=== PATIENT | female | born 1970 | race Caucasian/White ===

== ENCOUNTER 2023-07-05 06:09 | Emergency (ER) | payer OTHER, SELFPAY ==
--- NOTE | 2023-07-05 06:17 | ECG_ITS ---
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 Measurements Intervals [place] Rate: 49 P: 56 MA: 187 QRS: -76 QRSD: 137 T: 6 QT: 475 QTc: 433 Interpretive Statements SINUS BRADYCARDIA RIGHT BUNDLE BRANCH BLOCK [120+ ms QRS DURATION, UPRIGHT V1, 40+ ms S IN I/aVL/V4/V5/V6] INFERIOR MYOCARDIAL INFARCTION , PROBABLY OLD [40+ ms Q WAVE AND/OR ST/T ABNORMALITY IN II/aVF] No previous ECG available for comparison Electronically Signed On 07-05-2023 14:20:53 CDT by Sho Blackmon M.D. [id number]
--- NOTE | 2023-07-05 06:17 | XRR_ITS ---
PROCEDURE INFORMATION: Exam: XR Chest Exam date and time: 07/05/2023 6:53 AM Age: 53 years old Clinical indication: Cough and dyspnea; Additional info: Dyspnea/cough TECHNIQUE: Imaging protocol: Radiologic exam of the chest. Views: 1 view. COMPARISON: No relevant prior studies available. FINDINGS: Lungs: No focal airspace disease. Pleural spaces: Unremarkable. No pleural effusion. No pneumothorax. Heart/Mediastinum: Cardiomediastinal silhouette is within normal limits. Bones/joints: Unremarkable. XR/XR chest 1V portable [id number] IMPRESSION: No acute cardiopulmonary abnormality.
[2023-07-05 06:18] VITALS: BP 156/97; PULSE 47; RESP 22; TEMP 37.1; O2SAT 99; BMI 31.6
--- NOTE | 2023-07-05 06:19 | W.ED.ARRPALP ---
HPI - Arrhythmia/Palpitations General: Chief Complaint: Arrhythmia/Palpitations Stated Complaint: heart fluttering Time Seen by Provider: 07/05/23 06:12 Source: patient Mode of arrival: ambulatory History of Present Illness: 53-year-old female presents emergency room with complaint of palpitations and what she describes as fluttering of her heart. No chest pain no shortness of breath. She has had this in the past. On arrival here she is bradycardic. Previous work-up showed bradycardia we do not have any old EKGs. MD complaint: skipped beats and palpitations Onset (ago): minute(s) Duration: intermittent Severity: moderate Context: occurred during rest Associated symptoms: Deny anxiety, cough, diaphoresis, muscle cramps, nausea, paresthesias, pre-syncope, sense of impending doom, short of breath, syncope or vomiting Review of Systems Const: Denies: fever(s), chills or diaphoresis ENMT: Denies: throat pain, ear or mastoid pain, nasal discharge or nasal congestion Card: Reports: palpitations; Denies: chest pain, irregular heart rhythm, edema, swelling of feet/ankles, syncope or pre-syncope Resp: Denies: dyspnea, productive cough or non-productive cough GI: Denies: abdominal pain, nausea or vomiting : Denies: flank pain, difficulty voiding, dysuria, urinary frequency or urinary urgency Musc: Denies: muscle cramps Skin/Breast: Denies: rash or pruritus Psych: Denies: anxiety Physical Exam Const: GENERAL APPEARANCE: cooperative and comfortable ORIENTATION/CONSCIOUSNESS: Yes awake, Yes oriented to person, Yes oriented to place and Yes oriented to time HENMT: COMMON NORMALS: normocephalic, atraumatic and hearing grossly normal bilaterally HEAD & SCALP: normocephalic and atraumatic Resp: COMMON NORMALS: normal respiratory effort, No retractions, No use of accessory muscles and clear to auscultation bilaterally AUSCULTATION: clear to auscultation bilaterally Cardio: COMMON NORMALS: regular rhythm and No murmurs present (Cardio) RATE: bradycardic RHYTHM: regular rhythm GI: COMMON NORMALS: Soft to palpation and No hepatosplenomegaly present AUSCULTATION: Yes normoactive bowel sounds PALPATION: Yes Soft to palpation, No Tenderness to palpation present (GI), No Guarding due to palpation present (GI) and Yes No hepatosplenomegaly present Extremity: COMMON NORMALS: normal to inspection, capillary refill normal, no clubbing, cyanosis or edema, no calf tenderness and no pedal edema Neuro: SENSORIUM/ORIENTATION: Yes oriented to person, Yes oriented to place and Yes oriented to time Skin: COMMON NORMALS: no rashes or lesions noted GENERAL SKIN EXAM: no rashes or lesions noted Course Vital Signs: Vital signs: Vital Signs Temperature 98.7 F 07/05/23 06:18 Pulse Rate 51 L 07/05/23 09:24 Respiratory Rate 16 07/05/23 08:30 Blood Pressure 132/81 07/05/23 09:24 Pulse Oximetry 98 07/05/23 08:30 Oxygen Delivery Me thod Room Air 07/05/23 08:30 MDM - Arrhythmia/Palpitations Medical Decision Making Patient had no further palpitations no arrhythmias close here she was moderately bradycardic she has had this evaluated in the past and was no finding of significant arrhythmia. Blood pressure is slightly elevated while she is here. Her TSH is elevated well we will start her on a low-dose of levothyroxine and have her follow-up with her primary care doctor orthostatics are normal. We went to ambulate the patient she said she is lightheaded and dizzy CT was ordered which was unremarkable subsequently patient was ambulated again this time she did much better. Discharge patient home and follow-up with her primary care doctor. Medical Records I reviewed the patient's medical records. Lab Data I reviewed the patient's lab results. 07/05/23 06:26 07/05/23 06:26 Radiology Impressions Chest X-Ray 07/05/23 06:17 IMPRESSION: No acute cardiopulmonary abnormality. Head CT 07/05/23 09:29 IMPRESSION: No acute intracranial abnormality. Please note that MRI is more sensitive for early changes of acute ischemia. Laboratory Results WBC 8.7 10^3/uL (4.0-10.0) 07/05/23 06:26 RBC 4.76 10^6/uL (4.1-5.3) 07/05/23 06:26 Hgb 14.5 g/dL (11.5-15.3) 07/05/23 06:26 Hct 45.1 % (37.0-47.0) 07/05/23 06:26 MCV 94.7 fl (81-99) 07/05/23 06:26 MCH 30.5 pg (28.0-34.0) 07/05/23 06:26 MCHC 32.2 g/dL (30.0-36.0) 07/05/23 06:26 RDW 13.4 % (12.1-15.1) 07/05/23 06:26 Plt Count 253 10^3/cmm (130-400) 07/05/23 06:26 MPV 9.2 fL (7.4-10.4) 07/05/23 06:26 Neut % (Auto) 52.3 % 07/05/23 06: Lymph % (Auto) 33.9 % 07/05/23 06:26 Curry % (Auto) 8.5 % 07/05/23 06:26 Eos % (Auto) 4.2 % 07/05/23 06:26 Baso % (Auto) 0.8 % 07/05/23 06:26 Neut # (Auto) 4.55 10^3/uL (1.8-7.7) 07/05/23 06:26 Lymph # (Auto) 3.0 10^3/uL (0.8-4.8) 07/05/23 06:26 Curry # (Auto) 0.7 10^3/uL (0.2-0.9) 07/05/23 06:26 Eos # (Auto) 0.4 10^3/uL (0.0-0.8) 07/05/23 06: Baso # (Auto) 0.1 10^3/uL (0.0-0.1) 07/05/23 06:26 Nucleated RBC % (auto) 0 % 07/05/23 06: Nucleated RBCs # 0.0 /100WBC 07/05/23 06:26 Sodium 141 mmol/L (136-145) 07/05/23 06:26 Potassium 3.8 mmol/L (3.5-5.1) 07/05/23 06:26 Chloride 103 mmol/L (98-107) 07/05/23 06:26 Carbon Dioxide 30 mmol/L (22-29) H 07/05/23 06:26 Anion Gap 11.8 (5-19) 07/05/23 06:26 BUN 14 mg/dL (6-20) 07/05/23 06:26 Creatinine 0.7 mg/dL (0.5-0.9) 07/05/23 06:26 GFR Calculation 86.9 mL/min (90-130) L 07/05/23 06:26 Glucose 102 mg/dL (65-115) 07/05/23 06:26 Calculated Osmolality 293 mOsm/kg (285-295) 07/05/23 06:26 Calcium 9.3 mg/dL (8.5-10.5) 07/05/23 06:26 Total Bilirubin 0.2 mg/dL (0.15-1.2) 07/05/23 06:26 AST 12 U/L (0-32) 07/05/23 06:26 ALT 15 U/L (0-33) 07/05/23 06:26 Alkaline Phosphatase 95 U/L (35-105) 07/05/23 06:26 Total Protein 6.8 g/dL (6.6-8.7) 07/05/23 06:26 Albumin 4.1 g/dL (3.5-5.2) 07/05/23 06:26 Globulin 2.7 g/dL (1.3-4.6) 07/05/23 06:26 TSH 5.09 uIU/mL (0.27-4.20) H 07/05/23 06:26 Discharge Plan Discharge Patient Disposition: Home Clinical Impression: Hypothyroid, Bradycardia, Near syncope Condition: Stable Prescriptions: New levothyroxine 25 mcg capsule 25 mcg PO DAILY Qty: 30 0RF No Action Prozac 40 mg Capsule 40 mg PO QAM Nexium 40 mg Capsule,Delayed Release(Dr/Ec) 40 mg PO QAM ibuprofen 200 mg Tablet 600 - 800 mg PO Q6H PRN (Reason: Pain) Estrace 2 mg Tablet 2 mg PO QAM Lasix 20 mg Tablet 20 mg PO DAILY PRN (Reason: Edema) albuterol sulfate 90 mcg/actuation Hfa Aerosol Inhaler 2 puff INHALATION QID PRN (Reason: Shortness Of Breath) Claritin 10 mg Tablet 10 mg PO QAM Discharge Orders: Discharge ED (Routine); Ordered 07/05/23 Ordered By: John Lemus Referrals: Patience Luna, BANQUET WAITER/WAITRESS-C [Nurse Practitioner] - 08/05/23 9:00 am Discharge Diet: Usual diet Discharge Activity: Resume usual activity Patient Instructions: Opioid Safety, Pain Management Activity Restrictions/Additional Instructions: You were seen today for low heart rate. Case management make arrangements for you to have an echocardiogram and a 48-hour Holter monitor. Stand Alone Forms: Work/School Release Coding Level of Care Code ED Air Hole Driller for Rolly Costello
[2023-07-05 06:35] LABS: Basophils # 0.1 10^3/uL (0.0-0.1); Basophils % 0.8 %; Eosinophils # 0.4 10^3/uL (0.0-0.8); Eosinophils % 4.2 %; Hematocrit 45.1 % (37.0-47.0); Hemoglobin 14.5 g/dL (11.5-15.3); Lymphocytes % 33.9 %; Mean Corpuscular HGB Conc 32.2 g/dL (30.0-36.0); Mean Corpuscular Hemoglobin 30.5 pg (28.0-34.0); Mean Corpuscular Volume 94.7 fl (81-99); Mean Platelet Volume 9.2 fL (7.4-10.4); Monocytes # 0.7 10^3/uL (0.2-0.9); Monocytes % 8.5 %; Neutrophils # 4.55 10^3/uL (1.8-7.7); Neutrophils % 52.3 %; Nucleated Red Blood Cells % 0 %; Platelet Count 253 10^3/cmm (130-400); Red Blood Count 4.76 10^6/uL (4.1-5.3); Red Cell Distribution Width 13.4 % (12.1-15.1); White Blood Count 8.7 10^3/uL (4.0-10.0)
[2023-07-05 06:55] VITALS: BP 156/97; PULSE 51; RESP 16; O2SAT 98
[2023-07-05 07:00] LABS: Alanine Aminotransferase 15 U/L (0-33); Albumin Level 4.1 g/dL (3.5-5.2); Alkaline Phosphatase 95 U/L (35-105); Anion Gap 11.8 (5-19); Aspartate Amino Transferase 12 U/L (0-32); Blood Urea Nitrogen 14 mg/dL (6-20); Calcium 9.3 mg/dL (8.5-10.5); Carbon Dioxide 30 mmol/L (22-29); Chloride 103 mmol/L (98-107); Globulin 2.7 g/dL (1.3-4.6); Glomerular Filtration Rate 86.9 mL/min (90-130); Glucose 102 mg/dL (65-115); Osmolality Calculated 293 mOsm/kg (285-295); Potassium 3.8 mmol/L (3.5-5.1); Sodium 141 mmol/L (136-145); Thyroid Stimulating Hormone 5.09 uIU/mL (0.27-4.20); Total Bilirubin 0.2 mg/dL (0.15-1.2); Total Protein 6.8 g/dL (6.6-8.7)
[2023-07-05 07:39] VITALS: BP 136/87; PULSE 63; RESP 16; O2SAT 97
--- NOTE | 2023-07-05 07:43 | PC.PHAR ---
pt states she takes care of her own medications-ext doesnt show any meds pt states she filled them in a different state-
[2023-07-05] MEDS: acetaminophen 500 mg Tablet 1000 MG PO (08:25)
[2023-07-05 08:30] VITALS: BP 156/91; PULSE 52; RESP 16; O2SAT 98
[2023-07-05 09:24] VITALS: BP 132/81; BP 150/98; BP 161/100; PULSE 51; PULSE 68; PULSE 70
--- NOTE | 2023-07-05 09:29 | CTR_ITS ---
PROCEDURE INFORMATION: Exam: CT Head Without Contrast Exam date and time: 07/05/2023 9:39 AM Age: 53 years old Clinical indication: Dizziness; Additional info: Dizziness/weakness TECHNIQUE: Imaging protocol: Computed tomography of the head without contrast. Radiation optimization: All CT scans at this facility use at least one of these dose optimization techniques: automated exposure control; mA and/or kV adjustment per patient size (includes targeted exams where dose is matched to clinical indication); or iterative reconstruction. REPORTING DATA: Count of CT and Cardiac NM exams in prior 12 months: This patient has received 0 known CTs and 0 known cardiac nuclear medicine studies in the 12 months prior to the current study. COMPARISON: No relevant prior studies available. RADIATION DOSE METRICS: Total DLP (mGy-cm): 1077.18 FINDINGS: Brain: Normal. No hemorrhage. Unremarkable white matter. No mass effect. Cerebral ventricles: No ventriculomegaly. Paranasal sinuses: Visualized sinuses are unremarkable. No fluid levels. Mastoid air cells: Visualized mastoid air cells are well aerated. Bones/joints: Unremarkable. No acute fracture. Soft tissues: Unremarkable. CT/CT head wo con* [id number] IMPRESSION: No acute intracranial abnormality. Please note that MRI is more sensitive for early changes of acute ischemia.
--- NOTE | 2023-07-05 10:23 | DCPLANNER ---
sales promotion manager had message to get patient established with a primary care physician, at the [facility]. sales promotion manager called the [facility], gave clinic patients information. A follow up appointment was scheduled for Saturday, August 05, 2023 at 9:00 with Olga Lidia Luna. sales promotion manager gave patient the appointment information.
--- NOTE | 2023-07-05 10:25 | DCPLANNER ---
Addendum entered by Jackelin Gomes 07/17/23 14:04: gas manager received the following message from heart care about the halter monitor being scheduled: Attempted to call patient, lvm. Mailed patient appt letter for Cardio for 08/12 @ 11:30. I can not book for monitor until we speak with patient so hopefully patient will call back. Thank you. gas manager received the following message from centralized scheduling regarding echo cardiogram for patient: We tried to reach her three times and inactivated the order. Original Note: gas manager had message to schedule an outpatient 48 hour halter monitor, and an outpatient echocardiogram for patient. gas manager faxed signed orders to centralized scheduling and heart care, who will call patient with appointment information.
--- NOTE | 2023-07-05 10:26 | PC.NURSE ---
Got patient up to ambulate her to see how she felt. Patient states she is still having head pain after the tylenol of 7 out of 10 and she still feels lightheaded. Patient ambulated well.
--- NOTE | 2023-07-05 10:26 | DCPLANNER ---
Addendum entered by Jackelin Gomes 07/17/23 14:08: Patient has a follow up appointment scheduled for Saturday, August 12, 2023 at 11:[address] at [facility]. Original Note: manager fashion had message to schedule a follow up appointment for patient with cardiology. manager fashion sent patients information to the front office staff at [facility]. Patients information will be printed and reviewed, clinic will call patient with appointment information.
[2023-07-05] MEDS: ketorolac 30 mg/mL INJ IM (10:44)
== END 2023-07-05 11:24 | disposition home or self-care (01) ==
PROVIDERS: Emergency Provider Family Medicine
DX: R00.1 Bradycardia, unspecified (principal); R55 Syncope and collapse; E03.9 Hypothyroidism, unspecified
CPT/HCPCS: 70450; 71045; 80053; 84443; 85025; 93005; 96372; 99285; J1885

== ENCOUNTER 2023-07-19 16:04 | Emergency (ER) | payer OTHER, SELFPAY ==
--- NOTE | 2023-07-19 16:08 | XRR_ITS ---
PROCEDURE INFORMATION: Exam: XR Chest Exam date and time: 07/19/2023 4:20 PM Age: 53 years old Clinical indication: Dyspnea/cough TECHNIQUE: Imaging protocol: Radiologic exam of the chest. Views: 1 view. COMPARISON: CR XR chest 1V portable [id number] 07/05/2023 6:53 AM FINDINGS: Lungs: No focal peripheral lung consolidation, air bronchogram formation, or silhouette sign. Pleural spaces: No pleural effusion or pneumothorax. Heart/Mediastinum: The cardiac silhouette is not enlarged. The mediastinal contours are normal. Bones/joints: No acute osseous abnormality. XR/XR chest 1V portable [id number] IMPRESSION: No sign of pneumonia.
--- NOTE | 2023-07-19 16:10 | ED_ITS ---
Documented by User: John Lemus DO 07/20/23 05:57 HPI - Weakness General: Chief complaint: Weakness Stated complaint: weakness Time Seen by Provider: 07/19/23 16:08 Source: patient Mode of arrival: EMS History of Present Illness: 53-year-old female presents emergency room complaint generally complaining of fatigue and weakness she occasionally gets some palpitations. She was seen on July 05 only significant finding was a slightly elevated TSH. She was given a low-dose Synthroid she has not started that yet. She still occasionally has a palpitation no particular chest pain no vomiting or diarrhea. No dysuria urgency or frequency. No falls no ataxia no focal neurologic deficits. MD Complaint: generalized weakness Onset (ago): week(s) Location: generalized Relieving factors: none Exacerbating factors: none Associated symptoms: Denies chest pain, chills, confusion, melena, decreased appetite, diaphoresis, dysuria, easy bruising, fever(s), headache(s), myalgias, nausea, rash, short of breath, syncope or vomiting Review of Systems Const: Reports: fatigue and malaise; Denies: fever(s), chills or diaphoresis ENMT: Denies: throat pain, ear or mastoid pain, nasal discharge or nasal congestion Card: Denies: chest pain or syncope Resp: Denies: dyspnea, productive cough or non-productive cough GI: Denies: abdominal pain, nausea, vomiting, hematochezia or melena : Denies: dysuria, urinary frequency or oliguria Skin/Breast: Denies: rash or pruritus Neuro: Denies: headache(s) or confusion Romeo/Lymph: Denies: easy bruising Physical Exam Const: GENERAL APPEARANCE: cooperative and comfortable ORIENTATION/CONSCIOUSNESS: Yes awake, Yes oriented to person, Yes oriented to place and Yes oriented to time HENMT: COMMON NORMALS: normocephalic, atraumatic and hearing grossly normal bilaterally HEAD & SCALP: normocephalic and atraumatic Resp: COMMON NORMALS: normal respiratory effort, No retractions, No use of accessory muscles and clear to auscultation bilaterally AUSCULTATION: clear to auscultation bilaterally Cardio: COMMON NORMALS: regular rhythm and No murmurs present (Cardio) RATE: bradycardic RHYTHM: regular rhythm GI: COMMON NORMALS: Soft to palpation and No hepatosplenomegaly present AUSCULTATION: Yes normoactive bowel sounds PALPATION: Yes Soft to palpation, No Tenderness to palpation present (GI), No Guarding due to palpation present (GI) and Yes No hepatosplenomegaly present Extremity: COMMON NORMALS: normal to inspection, capillary refill normal, no clubbing, cyanosis or edema, no calf tenderness and no pedal edema Neuro: SENSORIUM/ORIENTATION: Yes oriented to person, Yes oriented to place and Yes oriented to time Skin: COMMON NORMALS: no rashes or lesions noted GENERAL SKIN EXAM: no rashes or lesions noted Course Vital Signs: Vital signs: Vital Signs Temperature 98.2 F 07/19/23 16:27 Pulse Rate 50 L 07/19/23 19:18 Respiratory Rate 16 07/19/23 19:18 Blood Pressure 138/87 07/19/23 19:18 Pulse Oximetry 96 07/19/23 19:18 Oxygen Delivery Me thod Room Air 07/19/23 19:04 MDM - Weakness Medical Decision Making Care signed out to Dr. Egan at change of shift. See final notes for diagnosis and disposition. Patient presents for generalized weakness she has been well-appearing here blood work here is all normal she is to start her Synthroid medicine that was prescribed to her last week she has not started it yet she is to follow-up with her PCP and return if worsening she understands agrees to plan. Lab Data 07/19/23 16:31 07/19/23 16:31 Laboratory Results WBC 7.55 10^3/uL (3.29-11.43) 07/19/23 16: RBC 4.62 10^6/uL (3.85-5.65) 07/19/23 16:31 Hgb 14.40 g/dL (11.27-16.99) 07/19/23 16:31 Hct 44.1 % (36-47) 07/19/23 16:31 MCV 95.5 fl (85-98) 07/19/23 16: MCH 31.2 pg (27-33) 07/19/23 16: MCHC 32.7 g/dL (30-55) 07/19/23 16:31 RDW 13.6 % (12.1-15.1) 07/19/23 16:31 Plt Count 210 10^3/cmm (157-399) 07/19/23 16:31 MPV 9.4 fL (7.4-10.4) 07/19/23 16:31 Neut % (Auto) 60.6 % 07/19/23 16:31 Lymph % (Auto) 26.2 % 07/19/23 16:31 Perkins % (Auto) 8.6 % 07/19/23 16:31 Eos % (Auto) 3.6 % 07/19/23 16:31 Baso % (Auto) 0.7 % 07/19/23 16:31 Neut # (Auto) 4.58 10^3/uL (1.8-7.7) 07/19/23 16:31 Lymph # (Auto) 2.0 10^3/uL (0.8-4.8) 07/19/23 16:31 Perkins # (Auto) 0.7 10^3/uL (0.2-0.9) 07/19/23 16:31 Eos # (Auto) 0.3 10^3/uL (0.0-0.8) 07/19/23 16:31 Baso # (Auto) 0.1 10^3/uL (0.0-0.1) 07/19/23 16:31 Nucleated RBC % (auto) 0 % 07/19/23 16: Nucleated RBCs # 0.0 /100WBC 07/19/23 16:31 Sodium 139 mmol/L (136-145) 07/19/23 16:31 Potassium 4.0 mmol/L (3.5-5.1) 07/19/23 16:31 Chloride 107 mmol/L (98-107) 07/19/23 16:31 Carbon Dioxide 25 mmol/L (22-29) 07/19/23 16:31 Anion Gap 11.0 (5-19) 07/19/23 16:31 BUN 15 mg/dL (6-20) 07/19/23 16:31 Creatinine 0.6 mg/dL (0.5-0.9) 07/19/23 16:31 GFR Calculation 103.8 mL/min (90-130) 07/19/23 16:31 Glucose 94 mg/dL (65-115) 07/19/23 16:31 Calculated Osmolality 289 mOsm/kg (285-295) 07/19/23 16:31 Calcium 8.8 mg/dL (8.5-10.5) 07/19/23 16:31 Total Bilirubin 0.2 mg/dL (0.15-1.2) 07/19/23 16:31 AST 12 U/L (0-32) 07/19/23 16:31 ALT 14 U/L (0-33) 07/19/23 16:31 Alkaline Phosphatase 74 U/L (35-105) 07/19/23 16:31 Troponin T Baseline 6 ng/L (0-10) 07/19/23 16:31 Troponin T 120 Minute 6.00 ng/L (0-10) 07/19/23 18:26 Delta Troponin T 0 ABS# (0-10) 07/19/23 18:26 Total Protein 6.3 g/dL (6.6-8.7) L 07/19/23 16:31 Albumin 3.8 g/dL (3.5-5.2) 07/19/23 16:31 Globulin 2.5 g/dL (1.3-4.6) 07/19/23 16:31 Discharge Plan Discharge Patient Disposition: Home Clinical Impression: Generalized weakness Condition: Stable Prescriptions: No Action Prozac 40 mg Capsule 40 mg PO QAM Nexium 40 mg Capsule,Delayed Release(Dr/Ec) 40 mg PO QAM ibuprofen 200 mg Tablet 600 - 800 mg PO Q6H PRN (Reason: Pain) Estrace 2 mg Tablet 2 mg PO QAM Lasix 20 mg Tablet 20 mg PO DAILY PRN (Reason: Edema) albuterol sulfate 90 mcg/actuation Hfa Aerosol Inhaler 2 puff INHALATION QID PRN (Reason: Shortness Of Breath) Claritin 10 mg Tablet 10 mg PO QAM levothyroxine 25 mcg capsule 25 mcg PO DAILY Qty: 30 0RF Discharge Orders: Discharge ED (Routine); Ordered 07/19/23 Ordered By: Susan Egan Discharge Diet: Advance as tolerated Discharge Activity: Resume usual activity Patient Instructions: Weakness (ED) Coding Level of Care Code ED Sales Recruitment Specialist for Chg Fwd Documented by User: Susan Egan MD 07/19/23 19:16 HPI - Weakness General: Chief complaint: Weakness Stated complaint: weakness Time Seen by Provider: 07/19/23 16:08 Course Vital Signs: Vital signs: Vital Signs Temperature 98.2 F 07/19/23 16:27 Pulse Rate 50 L 07/19/23 19:18 Respiratory Rate 16 07/19/23 19:18 Blood Pressure 138/87 07/19/23 19:18 Pulse Oximetry 96 07/19/23 19:18 Oxygen Delivery Me thod Room Air 07/19/23 19:04 MDM - Weakness Medical Decision Making Patient presents for generalized weakness she has been well-appearing here blood work here is all normal she is to start her Synthroid medicine that was prescribed to her last week she has not started it yet she is to follow-up with her PCP and return if worsening she understands agrees to plan. Medical Records I reviewed the patient's medical records. Lab Data I reviewed the patient's lab results. 07/19/23 16:31 07/19/23 16:31 Laboratory Results WBC 7.55 10^3/uL (3.29-11.43) 07/19/23 16:31 RBC 4.62 10^6/uL (3.85-5.65) 07/19/23 16:31 Hgb 14.40 g/dL (11.27-16.99) 07/19/23 16:31 Hct 44.1 % (36-47) 07/19/23 16:31 MCV 95.5 fl (85-98) 07/19/23 16:31 MCH 31.2 pg (27-33) 07/19/23 16:31 MCHC 32.7 g/dL (30-55) 07/19/23 16:31 RDW 13.6 % (12.1-15.1) 07/19/23 16:31 Plt Count 210 10^3/cmm (157-399) 07/19/23 16:31 MPV 9.4 fL (7.4-10.4) 07/19/23 16:31 Neut % (Auto) 60.6 % 07/19/23 16:31 Lymph % (Auto) 26.2 % 07/19/23 16:31 Perkins % (Auto) 8.6 % 07/19/23 16:31 Eos % (Auto) 3.6 % 07/19/23 16:31 Baso % (Auto) 0.7 % 07/19/23 16:31 Neut # (Auto) 4.58 10^3/uL (1.8-7.7) 07/19/23 16:31 Lymph # (Auto) 2.0 10^3/uL (0.8-4.8) 07/19/23 16:31 Perkins # (Auto) 0.7 10^3/uL (0.2-0.9) 07/19/23 16:31 Eos # (Auto) 0.3 10^3/uL (0.0-0.8) 07/19/23 16:31 Baso # (Auto) 0.1 10^3/uL (0.0-0.1) 07/19/23 16:31 Nucleated RBC % (auto) 0 % 07/19/23 16:31 Nucleated RBCs # 0.0 /100WBC 07/19/23 16:31 Sodium 139 mmol/L (136-145) 07/19/23 16:31 Potassium 4.0 mmol/L (3.5-5.1) 07/19/23 16:31 Chloride 107 mmol/L (98-107) 07/19/23 16:31 Carbon Dioxide 25 mmol/L (22-29) 07/19/23 16:31 Anion Gap 11.0 (5-19) 07/19/23 16:31 BUN 15 mg/dL (6-20) 07/19/23 16:31 Creatinine 0.6 mg/dL (0.5-0.9) 07/19/23 16:31 GFR Calculation 103.8 mL/min (90-130) 07/19/23 16:31 Glucose 94 mg/dL (65-115) 07/19/23 16:31 Calculated Osmolality 289 mOsm/kg (285-295) 07/19/23 16:31 Calcium 8.8 mg/dL (8.5-10.5) 07/19/23 16:31 Total Bilirubin 0.2 mg/dL (0.15-1.2) 07/19/23 16:31 AST 12 U/L (0-32) 07/19/23 16:31 ALT 14 U/L (0-33) 07/19/23 16:31 Alkaline Phosphatase 74 U/L (35-105) 07/19/23 16:31 Troponin T Baseline 6 ng/L (0-10) 07/19/23 16:31 Troponin T 120 Minute 6.00 ng/L (0-10) 07/19/23 18:26 Delta Troponin T 0 ABS# (0-10) 07/19/23 18:26 Total Protein 6.3 g/dL (6.6-8.7) L 07/19/23 16:31 Albumin 3.8 g/dL (3.5-5.2) 07/19/23 16:31 Globulin 2.5 g/dL (1.3-4.6) 07/19/23 16:31 Discharge Plan Discharge Patient Disposition: Home Clinical Impression: Generalized weakness Condition: Stable Prescriptions: No Action Prozac 40 mg Capsule 40 mg PO QAM Nexium 40 mg Capsule,Delayed Release(Dr/Ec) 40 mg PO QAM ibuprofen 200 mg Tablet 600 - 800 mg PO Q6H PRN (Reason: Pain) Estrace 2 mg Tablet 2 mg PO QAM Lasix 20 mg Tablet 20 mg PO DAILY PRN (Reason: Edema) albuterol sulfate 90 mcg/actuation Hfa Aerosol Inhaler 2 puff INHALATION QID PRN (Reason: Shortness Of Breath) Claritin 10 mg Tablet 10 mg PO QAM levothyroxine 25 mcg capsule 25 mcg PO DAILY Qty: 30 0RF Discharge Orders: Discharge ED (Routine); Ordered 07/19/23 Ordered By: Susan Egan Discharge Diet: Advance as tolerated Discharge Activity: Resume usual activity Patient Instructions: Weakness (ED) Coding Level of Care Code ED Sales Recruitment Specialist for Rolly Costello
--- NOTE | 2023-07-19 16:25 | ECG_ITS ---
[facility] Test Date: 2023-07-19 Pat Name: Mamie Maldonado Department: Room: Gender: Female Facilities Mechanical Design Engineer: : 1970 Requested By: John More Order Number: [id number] Kingsley MD: Sho Blackmon M.D. Measurements Intervals [place] Rate: 52 P: 58 AL: 172 QRS: 259 QRSD: 150 T: 21 QT: 479 QTc: 447 Interpretive Statements SINUS BRADYCARDIA RIGHT AXIS DEVIATION [QRS AXIS > 100] RIGHT BUNDLE BRANCH BLOCK Compared to ECG 07/05/2023 06:29:55 Right-axis deviation now present Myocardial infarct finding no longer present Electronically Signed On 07-19-2023 20:30:41 CDT by Sho Blackmon M.D. [id number]
[2023-07-19 16:27] VITALS: BP 159/91; PULSE 53; RESP 18; TEMP 36.8; O2SAT 95
[2023-07-19 16:30] VITALS: BP 144/88; PULSE 56; RESP 16; O2SAT 95
[2023-07-19 16:41] LABS: Basophils # 0.1 10^3/uL (0.0-0.1); Basophils % 0.7 %; Eosinophils # 0.3 10^3/uL (0.0-0.8); Eosinophils % 3.6 %; Hematocrit 44.1 % (36-47); Lymphocytes % 26.2 %; Mean Corpuscular HGB Conc 32.7 g/dL (30-55); Mean Corpuscular Hemoglobin 31.2 pg (27-33); Mean Corpuscular Volume 95.5 fl (85-98); Mean Platelet Volume 9.4 fL (7.4-10.4); Monocytes # 0.7 10^3/uL (0.2-0.9); Monocytes % 8.6 %; Neutrophils # 4.58 10^3/uL (1.8-7.7); Neutrophils % 60.6 %; Nucleated Red Blood Cells % 0 %; Platelet Count 210 10^3/cmm (157-399); Red Blood Count 4.62 10^6/uL (3.85-5.65); Red Cell Distribution Width 13.6 % (12.1-15.1); White Blood Count 7.55 10^3/uL (3.29-11.43)
[2023-07-19 17:00] LABS: Alanine Aminotransferase 14 U/L (0-33); Albumin Level 3.8 g/dL (3.5-5.2); Alkaline Phosphatase 74 U/L (35-105); Aspartate Amino Transferase 12 U/L (0-32); Blood Urea Nitrogen 15 mg/dL (6-20); Calcium 8.8 mg/dL (8.5-10.5); Carbon Dioxide 25 mmol/L (22-29); Chloride 107 mmol/L (98-107); Globulin 2.5 g/dL (1.3-4.6); Glomerular Filtration Rate 103.8 mL/min (90-130); Glucose 94 mg/dL (65-115); Osmolality Calculated 289 mOsm/kg (285-295); Sodium 139 mmol/L (136-145); Total Bilirubin 0.2 mg/dL (0.15-1.2); Total Protein 6.3 g/dL (6.6-8.7)
[2023-07-19 17:30] VITALS: BP 140/88; PULSE 67; RESP 18; O2SAT 94
[2023-07-19 17:58] LABS: Troponin(5th) Baseline 6 ng/L (0-10)
[2023-07-19 18:30] VITALS: BP 152/90; PULSE 49; RESP 18; O2SAT 95
[2023-07-19 18:54] LABS: Troponin 5 2HR Delta 0 ABS# (0-10)
--- NOTE | 2023-07-19 19:02 | ECG_ITS ---
[facility] Test Date: 2023-07-19 Pat Name: Mamie Maldonado Department: Room: Gender: Female Clinical Assistant: : 1970 Requested By: John More Order Number: [id number] Kingsley MD: Sho Blackmon M.D. Measurements Intervals [place] Rate: 51 P: 60 VA: 183 QRS: 264 QRSD: 145 T: 23 QT: 463 QTc: 428 Interpretive Statements SINUS BRADYCARDIA RIGHT AXIS DEVIATION [QRS AXIS > 100] RIGHT BUNDLE BRANCH BLOCK [120+ ms QRS DURATION, UPRIGHT V1, 40+ ms S IN I/aVL/V4/V5/V6] Compared to ECG 07/19/2023 16:37:40 No significant changes Electronically Signed On 07-19-2023 20:38:41 CDT by Sho Blackmon M.D. [email or web address]
[2023-07-19] MEDS: acetaminophen 325 mg Tablet 650 MG PO (19:03)
[2023-07-19 19:04] VITALS: BP 138/87; PULSE 65; RESP 16; O2SAT 95
[2023-07-19 19:18] VITALS: BP 138/87; PULSE 50; RESP 16; O2SAT 96
== END 2023-07-19 19:34 | disposition home or self-care (01) ==
PROVIDERS: Family Medicine; Emergency Provider Emergency Medicine
DX: R53.1 Weakness (principal)
CPT/HCPCS: 71045; 80053; 84484; 85025; 93005; 99285

== ENCOUNTER 2023-08-26 08:51 | Outpatient (CLI) | payer OTHER, SELFPAY ==
--- NOTE | 2023-08-26 08:56 | MM_ITS ---
WS: [id number] SCREENING DIGITAL TOMOSYNTHESIS MAMMOGRAM WITH CAD HISTORY: Z12.31 - Encounter for screening mammogram for malignant ... COMPARISON: None available. Bilateral CC and MLO with tomosynthesis views submitted. Synthetic mammography reviewed. Computer aid ed detection analyzed. Breast composition: There are scattered areas of fibroglandular density. No suspicious masses, microc alcifications or architectural distortion. IMPRESSION: MM/[place] [id number] BI-RADS: 1-Negative FOLLOW UP: 1 Year Follow-up
== END 2023-08-26 08:52 | disposition home or self-care (01) ==
LOC: RAD 08:52
PROVIDERS: PCP Nurse Practitioner; Visit Provider Nurse Practitioner
DX: Z12.31 Encounter for screening mammogram for malignant neoplasm of breast (principal)
CPT/HCPCS: 77063; 77067

== ENCOUNTER → 2023-09-30 08:14 | Outpatient (BNVA) | payer OTHER, SELFPAY | PROVIDERS: PCP Nurse Practitioner; Visit Provider Nurse Practitioner | DX: E03.9 Hypothyroidism, unspecified (principal); I10 Essential (primary) hypertension | CPT/HCPCS: 80061; 84443 ==

== ENCOUNTER 2024-06-25 17:27 | Emergency (ER) | payer OTHER, SELFPAY ==
[2024-06-25 17:45] VITALS: BP 126/85; PULSE 66; RESP 18; TEMP 37; O2SAT 95
--- NOTE | 2024-06-25 17:52 | CTR_ITS ---
PROCEDURE INFORMATION: Exam: CT Abdomen And Pelvis With Contrast Exam date and time: 06/25/2024 6:11 PM Age: 54 years old Clinical indication: Abdominal pain; Prior surgery; Surgery date: 6+ months; Surgery type: Gb, appy, hyst; Additional info: General diffuse abd pain TECHNIQUE: Imaging protocol: Computed tomography of the abdomen and pelvis with contrast. Radiation optimization: All CT scans at this facility use at least one of these dose optimization techniques: automated exposure control; mA and/or kV adjustment per patient size (includes targeted exams where dose is matched to clinical indication); or iterative reconstruction. Contrast material: OMNI 350; Contrast volume: 100 ml; Contrast route: INTRAVENOUS (IV); COMPARISON: CR XR chest 1V portable [id number] 07/19/2023 4:20 PM RADIATION DOSE METRICS: Total DLP (mGy-cm): 878 FINDINGS: Liver: Normal. No mass. Gallbladder and biliary ducts: Status post cholecystectomy. Pancreas: Normal. No ductal dilation. Spleen: Normal. No splenomegaly. Adrenal glands: Normal. No mass. Kidneys and ureters: Small bilateral simple renal cysts, no follow-up needed. No hydronephrosis. Stomach and bowel: Diverticulosis without evidence of diverticulitis. Appendix: Status post appendectomy. Intraperitoneal space: Unremarkable. No free air. No significant fluid collection. Vasculature: Mild atherosclerotic calcifications. Lymph nodes: Unremarkable. No enlarged lymph nodes. Urinary bladder: Mild circumferential bladder wall thickening with trabeculation of the bladder wall. Reproductive: Status post hysterectomy. Bones/joints: Mild multilevel spondylosis. Soft tissues: Unremarkable. CT/CT abdomen pelvis w con* [id number] IMPRESSION: Mild circumferential bladder wall thickening with trabeculation of the bladder wall. Recommend clinical correlation with urinalysis if clinically indicated. Diverticulosis without evidence of diverticulitis. COMMENTS: Consistent with the [employer] [place] [employer]'s Incidental Findings Committee white paper (J Am Anahi Radiol 2018): Any incidental renal lesion less than 1 cm or classified as too small to characterize, or any incidental cystic renal lesion characterized as simple-appearing, is likely benign. No follow-up imaging is recommended for these lesions per consensus recommendations based on imaging criteria.
--- NOTE | 2024-06-25 17:56 | ED_ITS ---
HPI - Abdominal Pain 2 General: Chief Complaint: Abdominal Pain Stated Complaint: upper abd pain Time Seen by Provider: 06/25/24 17:52 History of Present Illness: 54-year-old female comes in with epigast blayne pain. Patient was referred from her primary care office for concerns of possible bowel obstruction. Patient appears nontoxic. Patient appears no acute distress. Patient has a history of gallbladder removal and a hysterectomy. Review of Systems 2 General: Reports: 10 or more systems reviewed and unremarkable except in HPI and below GI: Reports: abdominal pain PFSH ED 2 PFSH: Medical History Hyperlipidemia, mixed Essential hypertension BEATRIZ on CPAP Postmenopausal HRT (hormone replacement therapy) Generalized anxiety disorder Surgical History History of colonoscopy with polypectomy 2 scope with 8 polypectomy. Testing every 3 years History of total hysterectomy Vaginal with BSO History of appendectomy History of cholecystectomy Family History Father Cancer colon Hypertension Stroke Mother CAD (coronary artery disease) Hypertension Grandmother Diabetes Denies family history of Dementia Social History Smoking and tobacco/nicotine status: former use of tobacco/nicotine Second hand smoke exposure: No Alcohol intake: current Alcohol intake frequency: holidays/special occasions only Substance/Drug Use: unknown Adopted: No Caregiver/support person: No Lives independently: Yes Household members: significant other Housing: House Marital status: Single Number of children: 2 service: No Current occupational status: employed 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 Do you think of yourself as: Straight/Heterosexual Current gender identity: Female Physical Exam 2 Const: COMMON NORMALS: alert HENMT: COMMON NORMALS: normocephalic HEAD & SCALP: normocephalic Resp: COMMON NORMALS: normal respiratory effort Cardio: COMMON NORMALS: regular rate RATE: regular rate GI: COMMON NORMALS: Soft to palpation PALPATION: Yes Soft to palpation and Yes Tenderness to palpation present (GI) (Epigastric) Back/Pelvis: COMMON NORMALS: thoracic and lumbar spine normal to inspection Neuro: SENSORIUM/ORIENTATION: Yes alert Skin: COMMON NORMALS: turgor normal GENERAL SKIN EXAM: turgor normal Course 2 Vital Signs: Vital signs: Vital Signs Temperature 98.6 F 06/25/24 17:45 Pulse Rate 67 06/25/24 19:26 Respiratory Rate 16 06/25/24 19:26 Blood Pressure 126/85 06/25/24 17:45 Pulse Oximetry 90 06/25/24 19:26 MDM - Abdominal Pain Medical Decision Making Patient presents with epigastric pain and also complaints of nausea and diarrhea. On exam patient appears nontoxic. Vital signs are normal. Abdomen is soft with some epigastric tenderness. Differential diagnosis pancreatitis, gastroenteritis, diverticulitis, dehydration, bowel obstruction, enterocolitis. CBC CMP and urinalysis were unremarkable. CT of the abdomen pelvis noted some thickening of the bladder wall but otherwise unremarkable. Reviewed exam with patient recommended encouraging plenty of fluids and follow-up with primary care. Patient reports understanding agreed to plan. Lab Data 06/25/24 18:05 06/25/24 18:05 Labs/Radiology: Radiology Impressions Abdomen/Pelvis CT 06/25/24 17:52 IMPRESSION: Mild circumferential bladder wall thickening with trabeculation of the bladder wall. Recommend clinical correlation with urinalysis if clinically indicated. Diverticulosis without evidence of diverticulitis. COMMENTS: Consistent with the [place] [employer]'s Incidental Findings Committee white paper (J Am Anahi Radiol 2018): Any incidental renal lesion less than 1 cm or classified as too small to characterize, or any incidental cystic renal lesion characterized as simple-appearing, is likely benign. No follow-up imaging is recommended for these lesions per consensus recommendations based on imaging criteria. Laboratory Results WBC 8.96 10^3/uL (3.29-11.43) 06/25/24 18:05 RBC 4.89 10^6/uL (3.85-5.65) 06/25/24 18:05 Hgb 15.30 g/dL (11.27-16.99) 06/25/24 18:05 Hct 46.1 % (36-47) 06/25/24 18:05 MCV 94.3 fl (85-98) 06/25/24 18:05 MCH 31.3 pg (27-33) 06/25/24 18:05 MCHC 33.2 g/dL (30-55) 06/25/24 18:05 RDW 13.0 % (12.1-15.1) 06/25/24 18:05 Plt Count 222 10^3/cmm (157-399) 06/25/24 18:05 MPV 9.0 fL (7.4-10.4) 06/25/24 18:05 Neut % (Auto) 65.8 % 06/25/24 18:05 Lymph % (Auto) 22.7 % 06/25/24 18:05 [place] % (Auto) 8.1 % 06/25/24 18:05 Eos % (Auto) 2.6 % 06/25/24 18:05 Baso % (Auto) 0.6 % 06/25/24 18:05 Neut # (Auto) 5.90 10^3/uL (1.8-7.7) 06/25/24 18:05 Lymph # (Auto) 2.0 10^3/uL (0.8-4.8) 06/25/24 18:05 [place] # (Auto) 0.7 10^3/uL (0.2-0.9) 06/25/24 18:05 Eos # (Auto) 0.2 10^3/uL (0.0-0.8) 06/25/24 18:05 Baso # (Auto) 0.1 10^3/uL (0.0-0.1) 06/25/24 18:05 Nucleated RBC % (auto) 0 % 06/25/24 18:05 Nucleated RBCs # 0.0 /100WBC 06/25/24 18:05 Sodium 141 mmol/L (136-145) 06/25/24 18:05 Potassium 4.0 mmol/L (3.5-5.1) 06/25/24 18:05 Chloride 106 mmol/L (98-107) 06/25/24 18:05 Carbon Dioxide 24 mmol/L (22-29) 06/25/24 18:05 Anion Gap 15.0 (5-19) 06/25/24 18:05 BUN 8 mg/dL (6-20) 06/25/24 18:05 Creatinine 0.6 mg/dL (0.5-0.9) 06/25/24 18:05 GFR Calculation 103.4 mL/min (90-130) 06/25/24 18:05 Glucose 96 mg/dL (65-115) 06/25/24 18:05 Calculated Osmolality 290 mOsm/kg (285-295) 06/25/24 18:05 Calcium 8.8 mg/dL (8.5-10.5) 06/25/24 18:05 Total Bilirubin 0.4 mg/dL (0.15-1.2) 06/25/24 18:05 AST 41 U/L (0-32) H 06/25/24 18:05 ALT 63 U/L (0-33) H 06/25/24 18:05 Alkaline Phosphatase 72 U/L (35-105) 06/25/24 18:05 Total Protein 7.0 g/dL (6.6-8.7) 06/25/24 18:05 Albumin 4.2 g/dL (3.5-5.2) 06/25/24 18:05 Globulin 2.8 g/dL (1.3-4.6) 06/25/24 18:05 Lipase 18 U/L (13-60) 06/25/24 18:05 Urine Color Yellow (Yellow) 06/25/24 18:37 Urine Appearance Clear (CLEAR) 06/25/24 18:37 Urine pH 5.5 (5-7) 06/25/24 18:37 Ur Specific [place] 1.060 (1.005-1.030) H 06/25/24 18:37 Urine Protein Negative (Negative) 06/25/24 18:37 Urine Glucose (UA) Negative (Normal) 06/25/24 18:37 Urine Ketones Negative (Negative) 06/25/24 18:37 Urine Blood Negative (Negative) 06/25/24 18:37 Urine Nitrate Negative (Negative) 06/25/24 18:37 Urine Bilirubin Negative (Negative) 06/25/24 18:37 Urine Urobilinogen 1.0 mg/dL (Negative) 06/25/24 18:37 Ur Leukocyte Esterase Negative (Negative) 06/25/24 18:37 Urine RBC 3-5 /hpf (0-2) 06/25/24 18:37 Urine WBC 0-5 /hpf (0-5) 06/25/24 18:37 Ur Squamous Epith Cells 6-10 /hpf (0-5) 06/25/24 18:37 Amorphous Sediment Not Reportable 06/25/24 18:37 Urine Bacteria 1+ /hpf (NONE) H 06/25/24 18:37 Hyaline Casts 0.40 /lpf 06/25/24 18:37 All radiology interpretation(s) finalized by discharge Discharge Plan Discharge Patient Disposition: Home Clinical Impression: Gastroenteritis Condition: Stable Prescriptions: New ondansetron HCl 4 mg tablet 4 mg PO Q8H PRN (Reason: nausea and vomiting) Qty: 10 0RF dicyclomine 10 mg capsule 10 mg PO QID PRN (Reason: abdominal pain) Qty: 20 0RF No Action losartan [Cozaar] 50 mg tablet 50 mg PO DAILY Qty: 90 1RF Estrace 2 mg tablet 2 mg PO QAM Qty: 90 1RF Prozac 40 mg capsule 40 mg PO QAM Qty: 90 1RF Nexium 40 mg Capsule,Delayed Release(Dr/Ec) 40 mg PO QAM Lasix 20 mg Tablet 20 mg PO DAILY PRN (Reason: Edema) albuterol sulfate 90 mcg/actuation Hfa Aerosol Inhaler 2 puff INHALATION QID PRN (Reason: Shortness Of Breath) Claritin 10 mg Tablet 10 mg PO QAM Discharge Orders: Discharge ED (Routine); Ordered 06/25/24 Ordered By: Dorian Ugarte Referrals: Patience Luna, [employer] MARKUP CLERK-C [Primary Care Provider] - Discharge Diet: Usual diet Discharge Activity: Increase activity as tolerated Patient Instructions: Gastroenteritis (ED) Activity Restrictions/Additional Instructions: Use medications for abdominal pain and diarrhea, and nausea and vomiting. Eat a healthy diet. Make sure to drink plenty of water and fluids. Make sure to get plenty of fiber in the diet to help with bulking of the stool. Things like bananas, rice, apples can help with this bulking of the stool. Increase diet as tolerated. Follow-up with primary care for further instructions. Return to ER for worsening symptoms such as high fever, blood in vomit or stool, or new concerns. 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
[2024-06-25 18:12] LABS: Basophils # 0.1 10^3/uL (0.0-0.1); Basophils % 0.6 %; Eosinophils # 0.2 10^3/uL (0.0-0.8); Eosinophils % 2.6 %; Hematocrit 46.1 % (36-47); Lymphocytes % 22.7 %; Mean Corpuscular HGB Conc 33.2 g/dL (30-55); Mean Corpuscular Hemoglobin 31.3 pg (27-33); Mean Corpuscular Volume 94.3 fl (85-98); Monocytes # 0.7 10^3/uL (0.2-0.9); Monocytes % 8.1 %; Neutrophils % 65.8 %; Nucleated Red Blood Cells % 0 %; Platelet Count 222 10^3/cmm (157-399); Red Blood Count 4.89 10^6/uL (3.85-5.65); White Blood Count 8.96 10^3/uL (3.29-11.43)
[2024-06-25] MEDS: iohexol 350 mg/mL 500 mL Btl (per mL) IV (18:15)
[2024-06-25 18:28] LABS: Alanine Aminotransferase 63 U/L (0-33); Albumin Level 4.2 g/dL (3.5-5.2); Alkaline Phosphatase 72 U/L (35-105); Aspartate Amino Transferase 41 U/L (0-32); Blood Urea Nitrogen 8 mg/dL (6-20); Calcium 8.8 mg/dL (8.5-10.5); Carbon Dioxide 24 mmol/L (22-29); Chloride 106 mmol/L (98-107); Creatinine Clr Calc Pharmacy 116.5374; Globulin 2.8 g/dL (1.3-4.6); Glomerular Filtration Rate 103.4 mL/min (90-130); Glucose 96 mg/dL (65-115); Lipase 18 U/L (13-60); Osmolality Calculated 290 mOsm/kg (285-295); Sodium 141 mmol/L (136-145); Total Bilirubin 0.4 mg/dL (0.15-1.2)
[2024-06-25 18:49] LABS: Charge for UA Resulting for Rev
[2024-06-25 18:56] LABS: Bilirubin Urine Negative (Negative); Blood Urine Negative (Negative); Glucose Urine UA Negative (Normal); Ketones Urine Negative (Negative); Leukocyte Esterase Urine Negative (Negative); Nitrate Urine Negative (Negative); Protein Urine Negative (Negative); Urine Appearance Clear (CLEAR); Urine Color Yellow (Yellow); pH Urine 5.5 (5-7)
[2024-06-25] MEDS: ondansetron 2 mg/ML SDV 2 mL 4 MG IVP (18:57)
[2024-06-25] MEDS: pantoprazole 40 mg SDV IVP (18:58)
[2024-06-25 19:00] LABS: Bacteria Urine 1+ /hpf; WBC Urine 0-5 /hpf (0-5)
[2024-06-25] MEDS: sodium chloride 0.9% 500 ML 999 ML IV (19:04)
[2024-06-25 19:26] VITALS: PULSE 67; RESP 16; O2SAT 90
[2024-06-25 20:28] VITALS: PULSE 54; O2SAT 99
== END 2024-06-25 19:41 | disposition home or self-care (01) ==
PROVIDERS: Emergency Provider Nurse Practitioner Family; PCP Nurse Practitioner
DX: K52.9 Noninfective gastroenteritis and colitis, unspecified (principal); Z87.891 Personal history of nicotine dependence; E78.2 Mixed hyperlipidemia; I10 Essential (primary) hypertension; Z79.890 Hormone replacement therapy; Z11.52 Encounter for screening for COVID-19
CPT/HCPCS: 74177; 80053; 81003; 81015; 83690; 85025; 87426; 96374; 96375; 99285; J2405; J2470; J7040; Q9967

== ENCOUNTER → 2024-10-12 08:24 | Outpatient (BNVA) | payer OTHER, SELFPAY | PROVIDERS: PCP Nurse Practitioner; Visit Provider Nurse Practitioner | DX: E78.2 Mixed hyperlipidemia (principal); E03.9 Hypothyroidism, unspecified; I10 Essential (primary) hypertension | CPT/HCPCS: 80053; 80061; 83721; 84443; 85025 ==

== ENCOUNTER 2024-11-02 20:42 | Emergency (ER) | payer OTHER, SELFPAY ==
[2024-11-02] VITALS (7 sets, daily range): BP systolic 152–165; BP diastolic 79–94; PULSE 50–74; RESP 17–23; TEMP 36.4; O2SAT 93–98
[2024-11-02 21:23] LABS: Basophils # 0.1 10^3/uL (0.0-0.1); Basophils % 0.9 %; Eosinophils # 0.2 10^3/uL (0.0-0.8); Eosinophils % 2.6 %; Hematocrit 46.7 % (36-47); Lymphocytes # 1.7 10^3/uL (0.8-4.8); Lymphocytes % 24.7 %; Mean Corpuscular Hemoglobin 31.6 pg (27-33); Mean Corpuscular Volume 95.9 fl (85-98); Mean Platelet Volume 8.9 fL (7.4-10.4); Monocytes # 0.7 10^3/uL (0.2-0.9); Monocytes % 9.5 %; Neutrophils % 61.9 %; Nucleated Red Blood Cells % 0 %; Platelet Count 246 10^3/cmm (157-399); Red Blood Count 4.87 10^6/uL (3.85-5.65); Red Cell Distribution Width 12.9 % (12.1-15.1); White Blood Count 6.95 10^3/uL (3.29-11.43)
[2024-11-02 21:30] LABS: Alanine Aminotransferase 19 U/L (0-33); Alkaline Phosphatase 84 U/L (35-105); Aspartate Amino Transferase 15 U/L (0-32); Blood Urea Nitrogen 8 mg/dL (6-20); Calcium 9.1 mg/dL (8.5-10.5); Carbon Dioxide 28 mmol/L (22-29); Chloride 105 mmol/L (98-107); Creatinine Clr Calc Pharmacy 100.8854; Globulin 2.7 g/dL (1.3-4.6); Glomerular Filtration Rate 86.6 mL/min (90-130); Glucose 97 mg/dL (65-115); Lipase 27 U/L (13-60); Osmolality Calculated 292 mOsm/kg (285-295); Sodium 142 mmol/L (136-145); Total Bilirubin 0.2 mg/dL (0.15-1.2); Total Protein 6.7 g/dL (6.6-8.7)
--- NOTE | 2024-11-02 22:27 | CTR_ITS ---
PROCEDURE INFORMATION: Exam: CT Abdomen And Pelvis With Contrast Exam date and time: 11/02/2024 10:56 PM Age: 54 years old Clinical indication: Abdominal pain; Generalized; Prior surgery; Surgery date: 6+ months; Surgery type: Appy, choley, hysterectomy; Additional info: Diffuse abd pain w/ nausea TECHNIQUE: Imaging protocol: Computed tomography of the abdomen and pelvis with contrast. Radiation optimization: All CT scans at this facility use at least one of these dose optimization techniques: automated exposure control; mA and/or kV adjustment per patient size (includes targeted exams where dose is matched to clinical indication); or iterative reconstruction. Contrast material: [id number]; Contrast volume: 100 ml; Contrast route: INTRAVENOUS (IV); COMPARISON: CT abdomen pelvis w con* [id number] 06/25/2024 6:11 PM RADIATION DOSE METRICS: Total DLP (mGy-cm): 798.73 FINDINGS: Liver: Normal. No mass. Gallbladder and biliary ducts: Gallbladder is surgically absent. Pancreas: Normal. No ductal dilation. Spleen: Normal. No splenomegaly. Adrenal glands: Normal. No mass. Kidneys and ureters: Normal. No hydronephrosis. Stomach and bowel: Colonic diverticulosis. No bowel obstruction. Appendix: Appendix is not definitively visualized. Intraperitoneal space: Unremarkable. No free air. No significant fluid collection. Vasculature: Unremarkable. No abdominal aortic aneurysm. Lymph nodes: Unremarkable. No enlarged lymph nodes. Urinary bladder: Urinary bladder wall thickening despite underdistention. Reproductive: Unremarkable as visualized. Bones/joints: Unremarkable. No acute fracture. Soft tissues: Unremarkable. CT/CT abdomen pelvis w con* [id number] IMPRESSION: Urinary bladder wall thickening despite underdistention. Correlate with urinalysis. Colonic diverticulosis.
--- NOTE | 2024-11-02 22:28 | ED_ITS ---
HPI - Abdominal Pain 2 General: Chief Complaint: Abdominal Pain Stated Complaint: Abd Pain and bloating; back pain Time Seen by Provider: 11/02/24 20:56 Source: patient Mode of arrival: ambulatory Limitations: no limitations History of Present Illness: Patient is a 54-year-old female who presents to the emergency department complaining of abdominal pain greater than 24 hours. She states that she awoke with the pain yesterday, it has gradually worsened since and is currently a /10. Primarily felt in the left upper quadrant, she reports to me history of ileus. She denies any history of abdominal surgeries. She states she is feeling nauseous, but has not vomited. She also notes that her last normal bowel movement was this morning and she has been able to pass gas. Pain reported to sometimes radiate into her back. She has not taken anything for her pain or nausea, states that she has just been laying in bed. She is reporting anorexia, does not relate her pain to eating at all. Denies ever having this pain in the past. Vital stable at this time. MD elicited complaint: abdominal pain Pertinent past history: none Onset (ago): day(s) Pain Consistency: constant Location: [facility] Severity: moderate Pain scale (0-10): 7 Quality: aching Radiation: back Exacerbating factors: nothing Relieving factors: nothing Associated Symptoms: Reports nausea; Denies bloating, change in stool character, chills, constipation, diarrhea, dysuria, fever(s), hematochezia and vomiting Related Data Home Medications Medication Instructions Recorded Confirmed albuterol sulfate 90 mcg/actuation 2 puff inhalation QID PRN 07/05/23 10/27/24 aerosol inhaler Shortness Of Breath esomeprazole magnesium 40 mg 40 mg PO QAM 07/05/23 10/27/24 capsule,delayed release (Nexium) furosemide 20 mg tablet (Lasix) 20 mg PO DAILY PRN Edema 07/05/23 10/27/24 loratadine 10 mg tablet (Claritin) 10 mg PO QAM 07/05/23 10/27/24 Previous Rx's Medication Instructions Recorded dicyclomine 10 mg capsule 10 mg PO QID PRN IBS #20 caps 10/27/24 estradiol 2 mg tablet (Estrace) 2 mg PO QAM #90 tabs 10/27/24 fenofibrate nanocrystallized 145 145 mg PO DAILY #30 tabs 10/27/24 mg tablet (Tricor) fluoxetine 40 mg capsule (Prozac) 40 mg PO QAM #90 caps 10/27/24 Allergies Allergy/AdvReac Type Severity Reaction Status Date / Time rosuvastatin [From Crestor] Allergy Severe ADR-Itching Verified 11/02/24 20:50 codeine Allergy ADR-Itching Verified 11/02/24 20:50 hydrocodone Allergy ADR-Itching Verified 11/02/24 20:50 morphine Allergy ALGY-Rash Verified 11/02/24 20:50 sumatriptan [From Imitrex] Allergy ADR-Itching Verified 11/02/24 20:50 tramadol Allergy ADR-Itching Verified 11/02/24 20:50 Review of Systems 2 General: Reports: 10 or more systems reviewed and unremarkable except in HPI and below Const: Reports: change in appetite; Denies: fever(s), chills, change in weight or diaphoresis ENMT: Denies: throat pain or hoarseness Card: Denies: chest pain, palpitations or lightheadedness Resp: Denies: dyspnea, productive cough or wheezing GI: Reports: abdominal pain and nausea; Denies: vomiting, diarrhea, constipation, bloating, change in stool character or hematochezia : Denies: flank pain, difficulty voiding, dysuria, urinary frequency or urinary urgency Musc: Reports: back pain; Denies: neck pain Skin/Breast: Denies: rash or new lesions Neuro: Denies: headache(s) or dizziness PFSH ED 2 PFSH: Medical History Hyperlipidemia, mixed Essential hypertension BEATRIZ on CPAP Postmenopausal HRT (hormone replacement therapy) Generalized anxiety disorder Surgical History History of colonoscopy with polypectomy 2 scope with 8 polypectomy. Testing every 3 years History of total hysterectomy Vaginal with BSO History of appendectomy History of cholecystectomy Family History Father Cancer colon Hypertension Stroke Mother CAD (coronary artery disease) Hypertension Grandmother Diabetes Denies family history of Dementia Social History Smoking and tobacco/nicotine status: current every day tobacco/nicotine user Second hand smoke exposure: No Alcohol intake: current Alcohol intake frequency: holidays/special occasions only Substance/Drug Use: unknown Adopted: No Caregiver/support person: No Lives independently: Yes Household members: significant other Housing: House Marital status: Single Number of children: 2 service: No Current occupational status: employed 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 Do you think of yourself as: Straight/Heterosexual Current gender identity: Female Physical Exam 2 Const: COMMON NORMALS: patient oriented x3, no limitations, alert and well nourished GENERAL APPEARANCE: cooperative, comfortable and anxious N UTRITIONAL APPEARANCE: obese ORIENTATION/CONSCIOUSNESS: Yes awake OTHER: Mild distress secondary to abdominal pain HENMT: COMMON NORMALS: normocephalic, atraumatic, hearing grossly normal bilaterally, external ears normal, Normal external nose present, Normal nasal mucous membranes and turbinates present and moist oral mucous membranes HEAD & SCALP: normocephalic and atraumatic NOSE: Normal external nose present and Normal nasal mucous membranes and turbinates present EXTERNAL EAR: Yes external ears normal Eye: COMMON NORMALS: Equal, round and reactive pupils present, EOMs intact bilaterally, conjunctivae normal and normal visual parkinson by confrontation C ONJUNCTIVA: Yes conjunctivae normal PUPIL: Yes Equal, round and reactive pupils present Neck/C-Spine: COMMON NORMALS: full ROM, supple, no meningeal signs and no JVD Resp: COMMON NORMALS: normal respiratory effort, No retractions, No use of accessory muscles and clear to auscultation bilaterally AUSCULTATION: clear to auscultation bilaterally, no crackles, no rales, no rhonchi and no wheezes Cardio: COMMON NORMALS: no JVD, regular rate, regular rhythm, S1 normal heart sound present, S2 normal heart sound present, No gallops present (Cardio), No clicks present (Cardio), No murmurs present (Cardio), No rub (Cardio) and Peripheral pulses 2+ throughout RATE: regular rate RHYTHM: regular rhythm HEART SOUNDS: S1 normal heart sound present and S2 normal heart sound present PERIPHERAL PULSES: Peripheral pulses 2+ throughout GI: COMMON NORMALS: Normal to inspection, nondistended, normoactive bowel sounds present, Soft to palpation, No hepatosplenomegaly present and no masses INSPECTION: Yes central obesity AUSCULTATION: Yes Hyperactive bowel sounds present PALPATION: Yes Soft to palpation, Yes Tenderness to palpation present (GI) (Diffuse tender to palpation, worse in left upper quadrant), No Guarding due to palpation present (GI), No Rigid due to palpation and Yes No hepatosplenomegaly present RECTAL EXAM: deferred : COMMON NORMALS: Yes no CVA tenderness BLADDER/KIDNEY EXAM: Yes no CVA tenderness Back/Pelvis: COMMON NORMALS: no CVA tenderness Extremity: COMMON NORMALS: normal to inspection and full ROM Neuro: COMMON NORMALS: patient oriented x3, moves all extremities, no focal motor deficits and no sensory deficits noted SENSORIUM/ORIENTATION: Yes alert MENINGEAL SIGNS: Yes no meningeal signs Psych: COMMON NORMALS: mental status grossly normal, cooperative and speech normal SPEECH: Yes normal speech Skin: COMMON NORMALS: no rashes or lesions noted GENERAL SKIN EXAM: no rashes or lesions noted Course 2 Vital Signs: Vital signs: Vital Signs Temperature 97.5 F L 11/02/24 20:44 Pulse Rate 54 L 11/03/24 00:27 Respiratory Rate 15 11/03/24 00:27 Blood Pressure 136/80 11/03/24 00:27 Pulse Oximetry 97 11/03/24 00:27 Oxygen Delivery Me thod Room Air 11/02/24 20:44 MDM - Abdominal Pain Medical Decision Making Patient presenting with acute onset abdominal pain. Vitals have been stable throughout ED course, she reported history of asymptomatic bradycardia and she has been 50s to 60s. No concerning history for bowel obstruction as she has no previous bowel obstructions or abdominal surgeries. Lab work all normal, urinalysis not showing signs of infection. CT showing some chronic findings, no acute surgical abdomen. Rechecked patient after she received IV Toradol and Zofran, states that she is feeling much better. Upon further history taking she states that she feels exactly the same as she did with the prior stomach bug. This could be viral or could be an acid reflux, discussed conservative therapies with the patient and reasons to return. She is comfortable with this plan and discharge home at this time. Lab Data 11/02/24 21:03 11/02/24 21:03 Labs/Radiology: Radiology Impressions Abdomen/Pelvis CT 11/02/24 22:27 IMPRESSION: Urinary bladder wall thickening despite underdistention. Correlate with urinalysis. Colonic diverticulosis. Laboratory Results WBC 6.95 10^3/uL (3.29-11.43) 11/02/24 21:03 RBC 4.87 10^6/uL (3.85-5.65) 11/02/24 21:03 Hgb 15.40 g/dL (11.27-16.99) 11/02/24 21:03 Hct 46.7 % (36-47) 11/02/24 21:03 MCV 95.9 fl (85-98) 11/02/24 21:03 MCH 31.6 pg (27-33) 11/02/24 21:03 MCHC 33.0 g/dL (30-55) 11/02/24 21:03 RDW 12.9 % (12.1-15.1) 11/02/24 21:03 Plt Count 246 10^3/cmm (157-399) 11/02/24 21:03 MPV 8.9 fL (7.4-10.4) 11/02/24 21:03 Neut % (Auto) 61.9 % 11/02/24 21:03 Lymph % (Auto) 24.7 % 11/02/24 21:03 [place] % (Auto) 9.5 % 11/02/24 21:03 Eos % (Auto) 2.6 % 11/02/24 21:03 Baso % (Auto) 0.9 % 11/02/24 21:03 Neut # (Auto) 4.30 10^3/uL (1.8-7.7) 11/02/24 21:03 Lymph # (Auto) 1.7 10^3/uL (0.8-4.8) 11/02/24 21:03 [place] # (Auto) 0.7 10^3/uL (0.2-0.9) 11/02/24 21:03 Eos # (Auto) 0.2 10^3/uL (0.0-0.8) 11/02/24 21:03 Baso # (Auto) 0.1 10^3/uL (0.0-0.1) 11/02/24 21:03 Nucleated RBC % (auto) 0 % 11/02/24 21: Nucleated RBCs # 0.0 /100WBC 11/02/24 21:03 Sodium 142 mmol/L (136-145) 12/16/24 21:03 Potassium 4.0 mmol/L (3.5-5.1) 11/02/24 21:03 Chloride 105 mmol/L (98-107) 11/02/24 21:03 Carbon Dioxide 28 mmol/L (22-29) 11/02/24 21:03 Anion Gap 13.0 (5-19) 11/02/24 21:03 BUN 8 mg/dL (6-20) 11/02/24 21:03 Creatinine 0.7 mg/dL (0.5-0.9) 11/02/24 21:03 GFR Calculation 86.6 mL/min (90-130) L 11/02/24 21:03 Glucose 97 mg/dL (65-115) 11/02/24 21:03 Calculated Osmolality 292 mOsm/kg (285-295) 11/02/24 21:03 Calcium 9.1 mg/dL (8.5-10.5) 11/02/24 21:03 Total Bilirubin 0.2 mg/dL (0.15-1.2) 11/02/24 21:03 AST 15 U/L (0-32) 11/02/24 21:03 ALT 19 U/L (0-33) 11/02/24 21:03 Alkaline Phosphatase 84 U/L (35-105) 11/02/24 21:03 Total Protein 6.7 g/dL (6.6-8.7) 11/02/24 21:03 Albumin 4.0 g/dL (3.5-5.2) 11/02/24 21:03 Globulin 2.7 g/dL (1.3-4.6) 11/02/24 21:03 Lipase 27 U/L (13-60) 11/02/24 21:03 Urine Color Yellow (Yellow) 11/02/24 21:00 Urine Appearance Clear (CLEAR) 11/02/24 21:00 Urine pH 5.5 (5-7) 11/02/24 21:00 Ur Specific [place] 1.016 (1.005-1.030) 11/02/24 21:00 Urine Protein Negative (Negative) 11/02/24 21:00 Urine Glucose (UA) Negative (Normal) 11/02/24 21:00 Urine Ketones Negative (Negative) 11/02/24 21:00 Urine Blood Negative (Negative) 11/02/24 21:00 Urine Nitrate Negative (Negative) 11/02/24 21:00 Urine Bilirubin Negative (Negative) 11/02/24 21:00 Urine Urobilinogen 1.0 mg/dL (Negative) 11/02/24 21:00 Ur Leukocyte Esterase Negative (Negative) 11/02/24 21:00 Urine RBC 0-2 /hpf (0-2) 11/02/24 21:00 Urine WBC 0-5 /hpf (0-5) 11/02/24 21:00 Ur Squamous Epith Cells 6-10 /hpf (0-5) 11/02/24 21:00 Amorphous Sediment Not Reportable 11/02/24 21:00 Urine Bacteria 1+ /hpf (NONE) H 11/02/24 21:00 Hyaline Casts 0-4 /lpf H 11/02/24 21:00 All radiology interpretation(s) finalized by discharge Discharge Plan Discharge Patient Disposition: Home Clinical Impression: Abdominal pain Qualifiers: Abdominal location: left upper quadrant Qualified Code(s): R10.12 - Left upper quadrant pain Condition: Stable Prescriptions: No Action Estrace 2 mg tablet 2 mg PO QAM Qty: 90 1RF Prozac 40 mg capsule 40 mg PO QAM Qty: 90 1RF dicyclomine 10 mg capsule 10 mg PO QID PRN (Reason: IBS) Qty: 20 0RF fenofibrate nanocrystallized [Tricor] 145 mg tablet 145 mg PO DAILY Qty: 30 2RF Nexium 40 mg Capsule,Delayed Release(Dr/Ec) 40 mg PO QAM Lasix 20 mg Tablet 20 mg PO DAILY PRN (Reason: Edema) albuterol sulfate 90 mcg/actuation Hfa Aerosol Inhaler 2 puff INHALATION QID PRN (Reason: Shortness Of Breath) Claritin 10 mg Tablet 10 mg PO QAM Discharge Orders: Discharge ED (Routine); Ordered 11/03/24 Ordered By: Roman Vides Referrals: Patience Luna FNPAlexC [Primary Care Provider] - Patient Instructions: Abdominal Pain (ED) Activity Restrictions/Additional Instructions: See attached patient instructions for further education. Drink plenty of fluids. Alternate Tylenol and ibuprofen for pain relief. Monitor your condition closely and return to the emergency department with any new or worsening. Close follow-up with primary care. Coding Level of Care Code ED Supervisor [employer] for Rolly Costello
[2024-11-02 22:58] LABS: Bilirubin Urine Negative (Negative); Blood Urine Negative (Negative); Glucose Urine UA Negative (Normal); Ketones Urine Negative (Negative); Leukocyte Esterase Urine Negative (Negative); Nitrate Urine Negative (Negative); Protein Urine Negative (Negative); Specific Gravity, Urine 1.016 (1.005-1.030); Urine Appearance Clear (CLEAR); Urine Color Yellow (Yellow); pH Urine 5.5 (5-7)
[2024-11-02] MEDS: iohexol 350 mg/mL 500 mL Btl (per mL) IV (22:58)
[2024-11-02 23:03] LABS: Add Urine Microscopic? YES; Bacteria Urine 1+ /hpf; Hyaline Casts Urine 0-4 /lpf; RBC Urine 0-2 /hpf (0-2); WBC Urine 0-5 /hpf (0-5)
[2024-11-02] MEDS: ketorolac 30 mg/mL INJ IVP (23:44)
[2024-11-02] MEDS: ondansetron 2 mg/ML SDV 2 mL 8 MG IVP (23:44)
[2024-11-03] VITALS: BP 154/94; PULSE 56; RESP 19; O2SAT 92
[2024-11-03 00:27] VITALS: BP 136/80; PULSE 54; RESP 15; O2SAT 97
== END 2024-11-03 00:40 | disposition home or self-care (01) ==
PROVIDERS: Emergency Medicine; Emergency Provider Physician Assistant; PCP Nurse Practitioner
DX: R10.12 Left upper quadrant pain (principal); Z72.0 Tobacco use; E78.5 Hyperlipidemia, unspecified; I10 Essential (primary) hypertension
CPT/HCPCS: 36415; 74177; 80053; 81001; 83690; 85025; 96374; 96375; 99285; J1885; J2405

== ENCOUNTER 2024-11-04 18:13 | Emergency (ER) | payer OTHER, SELFPAY ==
[2024-11-04 18:20] VITALS: BP 158/91; PULSE 60; RESP 16; TEMP 36.2; O2SAT 94; BMI 33.9
--- NOTE | 2024-11-04 18:26 | ECG_ITS ---
[facility] Test Date: 2024-11-04 Pat Name: Mamie Maldonado Department: Room: Gender: Female [employer]er: : 1970 Requested By: Melissa More Order Number: [id number] Wynn MD: Yehuda Deluna M.D. Measurements Intervals [place] Rate: 57 P: 82 [place]: 166 QRS: 244 QRSD: 152 T: 48 QT: 447 QTc: 436 Interpretive Statements SINUS BRADYCARDIA RIGHT AXIS DEVIATION [QRS AXIS > 100] RIGHT BUNDLE BRANCH BLOCK [120+ ms QRS DURATION, UPRIGHT V1, 40+ ms S IN I/aVL/V4/V5/V6] POSSIBLE ANTERIOR MYOCARDIAL INFARCTION , PROBABLY OLD [30 ms Q WAVE IN V3/V4, OR R < 0.2 mV IN V4] Compared to ECG 07/19/2023 19:02:29 Myocardial infarct finding now present Electronically Signed On 11-06-2024 00:03:42 SLUDGE FILTRATION OPERATOR by Yehuda Deluna M.D. [email or web address]
--- NOTE | 2024-11-04 19:32 | XRR_ITS ---
PROCEDURE INFORMATION: Exam: XR Abdomen Exam date and time: 11/04/2024 8:33 PM Age: 54 years old Clinical indication: Abdominal pain; Generalized; Additional info: Abd pain TECHNIQUE: Imaging protocol: Radiologic exam of the abdomen. Views: Frontal supine view of the abdomen. 1 View. COMPARISON: CT abdomen pelvis w con* [id number] 11/02/2024 10:56 PM FINDINGS: Gastrointestinal tract: Nonobstructive bowel gas pattern. No evidence of free air or pneumatosis. Bones/joints: No evidence of acute osseous abnormality. XR/XR abdomen 1V* [id number] IMPRESSION: 1. Nonobstructive bowel gas pattern.
[2024-11-04 19:35] LABS: Basophils # 0.1 10^3/uL (0.0-0.1); Eosinophils # 0.1 10^3/uL (0.0-0.8); Eosinophils % 1.9 %; Lymphocytes # 1.4 10^3/uL (0.8-4.8); Lymphocytes % 21.3 %; Mean Corpuscular HGB Conc 32.6 g/dL (30-55); Mean Corpuscular Hemoglobin 30.8 pg (27-33); Mean Corpuscular Volume 94.6 fl (85-98); Mean Platelet Volume 9.1 fL (7.4-10.4); Monocytes # 0.7 10^3/uL (0.2-0.9); Monocytes % 10.5 %; Neutrophils # 4.34 10^3/uL (1.8-7.7); Nucleated Red Blood Cells % 0 %; Platelet Count 225 10^3/cmm (157-399); Red Blood Count 4.97 10^6/uL (3.85-5.65); Red Cell Distribution Width 12.8 % (12.1-15.1); White Blood Count 6.68 10^3/uL (3.29-11.43)
[2024-11-04] MEDS: ondansetron 2 mg/ML SDV 2 mL 8 MG IVP (19:46)
[2024-11-04] MEDS: HYDROmorphone 1 mg/mL INJ 1 mL IVP (19:46)
[2024-11-04 19:55] VITALS: BP 148/79; PULSE 53; O2SAT 92
[2024-11-04 20:03] LABS: Alanine Aminotransferase 19 U/L (0-33); Albumin Level 3.8 g/dL (3.5-5.2); Alkaline Phosphatase 77 U/L (35-105); Anion Gap 11.6 (5-19); Aspartate Amino Transferase 16 U/L (0-32); Blood Urea Nitrogen 7 mg/dL (6-20); C Reactive Protein 21.8 mg/L (0.0-4.9); Calcium 9.1 mg/dL (8.5-10.5); Carbon Dioxide 25 mmol/L (22-29); Chloride 105 mmol/L (98-107); Creatinine Clr Calc Pharmacy 117.6996; Globulin 2.9 g/dL (1.3-4.6); Glomerular Filtration Rate 103.4 mL/min (90-130); Glucose 95 mg/dL (65-115); Lipase 15 U/L (13-60); Osmolality Calculated 284 mOsm/kg (285-295); Potassium 3.6 mmol/L (3.5-5.1); Sodium 138 mmol/L (136-145); Total Bilirubin 0.2 mg/dL (0.15-1.2); Total Protein 6.7 g/dL (6.6-8.7)
--- NOTE | 2024-11-04 20:04 | ED_ITS ---
HPI - Abdominal Pain 2 General: Chief Complaint: Abdominal Pain Stated Complaint: severe adb pain Time Seen by Provider: 11/04/24 19:25 History of Present Illness: 54-year-old female who presents emergenc y room with abdominal pain. She was here couple of days ago with his. She is complaining of upper abdominal pain. She said it did not get any better after she left. She has had nausea but no vomiting or diarrhea. Related Data Home Medications Medication Instructions Recorded Confirmed albuterol sulfate 90 mcg/actuation 2 puff inhalation QID PRN 07/05/23 10/27/24 aerosol inhaler Shortness Of Breath esomeprazole magnesium 40 mg 40 mg PO QAM 07/05/23 10/27/24 capsule,delayed release (Nexium) furosemide 20 mg tablet (Lasix) 20 mg PO DAILY PRN Edema 07/05/23 10/27/24 loratadine 10 mg tablet (Claritin) 10 mg PO QAM 07/05/23 10/27/24 Previous Rx's Medication Instructions Recorded dicyclomine 10 mg capsule 10 mg PO QID PRN IBS #20 caps 10/27/24 estradiol 2 mg tablet (Estrace) 2 mg PO QAM #90 tabs 10/27/24 fenofibrate nanocrystallized 145 145 mg PO DAILY #30 tabs 10/27/24 mg tablet (Tricor) fluoxetine 40 mg capsule (Prozac) 40 mg PO QAM #90 caps 10/27/24 hydrocodone 5 mg-acetaminophen 325 1 tab PO Q6H PRN pain #20 tabs 11/04/24 mg tablet ondansetron 8 mg disintegrating 8 mg PO Q6H #14 tabs 11/04/24 tablet polyethylene glycol 3350 17 17 g PO DAILY #510 grams 11/04/24 gram/dose oral powder (Miralax) sucralfate 1 gram tablet (Carafate) 1 g PO TID 4 weeks #84 tabs 11/04/24 Allergies Allergy/AdvReac Type Severity Reaction Status Date / Time rosuvastatin [From Crestor] Allergy Severe ADR-Itching Verified 11/02/24 20:50 codeine Allergy ADR-Itching Verified 11/02/24 20:50 hydrocodone Allergy ADR-Itching Verified 11/02/24 20:50 morphine Allergy ALGY-Rash Verified 12/16/24 20:50 sumatriptan [From Imitrex] Allergy ADR-Itching Verified 11/02/24 20:50 tramadol Allergy ADR-Itching Verified 11/02/24 20:50 PFSH ED 2 PFSH: Medical History Hyperlipidemia, mixed Essential hypertension BEATRIZ on CPAP Postmenopausal HRT (hormone replacement therapy) Generalized anxiety disorder Surgical History History of colonoscopy with polypectomy 2 scope with 8 polypectomy. Testing every 3 years History of total hysterectomy Vaginal with BSO History of appendectomy History of cholecystectomy Family History Father Cancer colon Hypertension Stroke Mother CAD (coronary artery disease) Hypertension Grandmother Diabetes Denies family history of Dementia Social History Smoking and tobacco/nicotine status: current every day tobacco/nicotine user Second hand smoke exposure: No Alcohol intake: current Alcohol intake frequency: holidays/special occasions only Substance/Drug Use: unknown Adopted: No Caregiver/support person: No Lives independently: Yes Household members: significant other Housing: House Marital status: Single Number of children: 2 service: No Current occupational status: employed Current occupation: [employer] Do you think of yourself as: Straight/Heterosexual Current gender identity: Female Physical Exam 2 Narrative: EXAM NARRATIVE: General: Alert, no acute distress. Skin: Warm, dry. Head: Normocephalic, atraumatic. Neck: Supple, trachea midline. Eye: Extraocular movements are intact. Ears, nose, mouth and throat: mucosa moist. Cardiovascular: Regular, Normal peripheral perfusion. Respiratory: Lungs are clear to auscultation, respirations are non-labored, breath sounds are equal, Symmetrical chest wall expansion. Gastrointestinal: Soft, epigastric pain, Non distended Musculoskeletal: Normal ROM, no deformity. Neurological: Alert and oriented, No focal neurological deficit observed. Psychiatric: Cooperative, appropriate mood & affect. Course 2 Vital Signs: Vital signs: Vital Signs Temperature 97.2 F L 11/04/24 18:20 Pulse Rate 73 11/04/24 21:36 Respiratory Rate 16 11/04/24 21:36 Blood Pressure 112/76 11/04/24 21:36 Pulse Oximetry 93 11/04/24 21:36 Oxygen Delivery Me thod Room Air 11/04/24 21:36 MDM - Abdominal Pain Medical Decision Making Lab Review: Laboratory results were reviewed and interpreted by myself the emergency room physician. Lab work is unremarkable. CT of the abdomen pelvis shows no acute process. This was reviewed and interpreted by myself the emergency room physician. I also reviewed the radiology report. I reviewed the patient's medical record. Reexamination: Patient remained stable. No increased work of breathing. No altered mental status. No focal motor deficits. We discussed that she likely needs follow-up with gastroenterology. She is working on this. Assessment and plan: Abdominal pain ?Patient received Dilaudid and Zofran here in the emergency room. - Discharged home - Discussed plan with patient. Answered any questions. - Evaluation and treatment of this problem were appropriate in the emergency setting. Lab Data 11/04/24 19:02 11/04/24 19:02 Labs/Radiology: Radiology Impressions Abdomen X-Ray 11/04/24 19:32 IMPRESSION: 1. Nonobstructive bowel gas pattern. Abdomen/Pelvis CT 11/04/24 20:36 IMPRESSION: 1. No evidence of acute abnormality in the abdomen or pelvis. Laboratory Results WBC 6.68 10^3/uL (3.29-11.43) 11/04/24 19: RBC 4.97 10^6/uL (3.85-5.65) 11/04/24 19:02 Hgb 15.30 g/dL (11.27-16.99) 11/04/24 19:02 Hct 47.0 % (36-47) 11/04/24 19:02 MCV 94.6 fl (85-98) 11/04/24 19:02 MCH 30.8 pg (27-33) 11/04/24 19: MCHC 32.6 g/dL (30-55) 11/04/24 19: RDW 12.8 % (12.1-15.1) 11/04/24 19:02 Plt Count 225 10^3/cmm (157-399) 11/04/24 19: MPV 9.1 fL (7.4-10.4) 11/04/24 19: Neut % (Auto) 65.0 % 11/04/24 19:02 Lymph % (Auto) 21.3 % 11/04/24 19:02 [place] % (Auto) 10.5 % 11/04/24 19:02 Eos % (Auto) 1.9 % 11/04/24 19:02 Baso % (Auto) 1.0 % 11/04/24 19:02 Neut # (Auto) 4.34 10^3/uL (1.8-7.7) 11/04/24 19:02 Lymph # (Auto) 1.4 10^3/uL (0.8-4.8) 11/04/24 19:02 [place] # (Auto) 0.7 10^3/uL (0.2-0.9) 11/04/24 19:02 Eos # (Auto) 0.1 10^3/uL (0.0-0.8) 11/04/24 19:02 Baso # (Auto) 0.1 10^3/uL (0.0-0.1) 11/04/24 19:02 Nucleated RBC % (auto) 0 % 11/04/24 19:02 Nucleated RBCs # 0.0 /100WBC 11/04/24 19:02 Sodium 138 mmol/L (136-145) 11/04/24 19:02 Potassium 3.6 mmol/L (3.5-5.1) 11/04/24 19:02 Chloride 105 mmol/L (98-107) 11/04/24 19:02 Carbon Dioxide 25 mmol/L (22-29) 11/04/24 19:02 Anion Gap 11.6 (5-19) 11/04/24 19:02 BUN 7 mg/dL (6-20) 11/04/24 19:02 Creatinine 0.6 mg/dL (0.5-0.9) 11/04/24 19:02 GFR Calculation 103.4 mL/min (90-130) 11/04/24 19:02 Glucose 95 mg/dL (65-115) 11/04/24 19:02 Calculated Osmolality 284 mOsm/kg (285-295) L 11/04/24 19:02 Lactic Acid 1.2 mmol/L (0.5-2.2) 11/04/24 19:02 Calcium 9.1 mg/dL (8.5-10.5) 11/04/24 19:02 Total Bilirubin 0.2 mg/dL (0.15-1.2) 11/04/24 19:02 AST 16 U/L (0-32) 11/04/24 19:02 ALT 19 U/L (0-33) 11/04/24 19:02 Alkaline Phosphatase 77 U/L (35-105) 11/04/24 19:02 C-Reactive Protein 21.8 mg/L (0.0-4.9) H 11/04/24 19:02 Total Protein 6.7 g/dL (6.6-8.7) 11/04/24 19:02 Albumin 3.8 g/dL (3.5-5.2) 11/04/24 19:02 Globulin 2.9 g/dL (1.3-4.6) 11/04/24 19:02 Lipase 15 U/L (13-60) 11/04/24 19:02 Urine Color Yellow (Yellow) 11/04/24 20:48 Urine Appearance Clear (CLEAR) 11/04/24 20:48 Urine pH 5.5 (5-7) 11/04/24 20:48 Ur Specific [place] 1.017 (1.005-1.030) 11/04/24 20:48 Urine Protein Negative (Negative) 11/04/24 20:48 Urine Glucose (UA) Negative (Normal) 11/04/24 20:48 Urine Ketones Negative (Negative) 11/04/24 20:48 Urine Blood Trace (Negative) A 11/04/24 20:48 Urine Nitrate Negative (Negative) 11/04/24 20:48 Urine Bilirubin Negative (Negative) 11/04/24 20:48 Urine Urobilinogen 1.0 mg/dL (Negative) 11/04/24 20:48 Ur Leukocyte Esterase Negative (Negative) 11/04/24 20:48 Urine RBC 0-2 /hpf (0-2) 11/04/24 20:48 Urine WBC 0-5 /hpf (0-5) 11/04/24 20:48 Ur Squamous Epith Cells 0-5 /hpf (0-5) 11/04/24 20:48 Amorphous Sediment Not Reportable 11/04/24 20:48 Urine Bacteria 1+ /hpf (NONE) H 11/04/24 20:48 Hyaline Casts 0.40 /lpf 11/04/24 20:48 Urine Opiates Screen Positive ng/mL (Negative) H 11/04/24 20:48 Ur Barbiturates Screen Negative ng/mL (Negative) 11/04/24 20:48 Ur Phencyclidine Scrn Negative ng/mL (Negative) 11/04/24 20:48 Ur Amphetamines Screen Negative ng/mL (Negative) 11/04/24 20:48 U Benzodiazepines Scrn Positive ng/mL (Negative) H 11/04/24 20:48 Urine Cocaine Screen Negative ng/mL (Negative) 11/04/24 20:48 U Marijuana (THC) Screen Positive ng/mL (Negative) H 11/04/24 20:48 All radiology interpretation(s) finalized by discharge Discharge Plan Discharge Patient Disposition: Home Clinical Impression: Abdominal pain Condition: Stable Prescriptions: New sucralfate [Carafate] 1 gram tablet 1 g PO TID 28 Days Qty: 84 0RF Rx Instructions: with meals ondansetron 8 mg tablet,disintegrating 8 mg PO Q6H Qty: 14 0RF Rx Instructions: Take 1/2-1 tab every 6 hours as needed for nausea and vomiting polyethylene glycol 3350 [Miralax] 17 gram/dose powder 17 g PO DAILY Qty: 510 0RF Rx Instructions: Take 1 scoop daily while taking pain medications. hydrocodone-acetaminophen 5-325 mg tablet 1 tab PO Q6H PRN (Reason: pain) Qty: 20 0RF No Action Estrace 2 mg tablet 2 mg PO QAM Qty: 90 1RF Prozac 40 mg capsule 40 mg PO QAM Qty: 90 1RF dicyclomine 10 mg capsule 10 mg PO QID PRN (Reason: IBS) Qty: 20 0RF fenofibrate nanocrystallized [Tricor] 145 mg tablet 145 mg PO DAILY Qty: 30 2RF Nexium 40 mg Capsule,Delayed Release(Dr/Ec) 40 mg PO QAM Lasix 20 mg Tablet 20 mg PO DAILY PRN (Reason: Edema) albuterol sulfate 90 mcg/actuation Hfa Aerosol Inhaler 2 puff INHALATION QID PRN (Reason: Shortness Of Breath) Claritin 10 mg Tablet 10 mg PO QAM Discharge Orders: Discharge ED (Routine); Ordered 11/04/24 Ordered By: Melissa Dhaliwal Referrals: Patience Luna, [employer]ENT[employer] [Primary Care Provider] - Discharge Diet: Advance as tolerated Discharge Activity: Increase activity as tolerated Patient Instructions: Abdominal Pain (ED), Opioid Safety, Pain Management Activity Restrictions/Additional Instructions: Thank you for choosing [facility] for your healthcare needs today. Please realize this is an emergency room and that we are providing you with a medical screening exam and this may not be complete and all inclusive of all the testing and or work up that you may need to determine your ailment or severity of your illness. You have been screened and evaluated and felt safe for discharge. Health conditions do change or evolve sometimes and as such it is important that you follow up with your Primary Doctor to be re checked, 3-5 days is a general good time frame for follow up. 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
[2024-11-04 20:30] VITALS: BP 121/75; PULSE 53; O2SAT 94
--- NOTE | 2024-11-04 20:36 | CTR_ITS ---
PROCEDURE INFORMATION: Exam: CT Abdomen And Pelvis With Contrast Exam date and time: 11/04/2024 9:03 PM Age: 54 years old Clinical indication: Abdominal pain TECHNIQUE: Imaging protocol: Computed tomography of the abdomen and pelvis with contrast. Radiation optimization: All CT scans at this facility use at least one of these dose optimization techniques: automated exposure control; mA and/or kV adjustment per patient size (includes targeted exams where dose is matched to clinical indication); or iterative reconstruction. Contrast material: OMNI 350; Contrast volume: 100 ml; Contrast route: INTRAVENOUS (IV); COMPARISON: CT abdomen pelvis w con* [id number] 11/02/2024 10:56 PM RADIATION DOSE METRICS: Total DLP (mGy-cm): 780.92 FINDINGS: Lungs: Subsegmental bibasilar atelectasis. The visualized lung bases are otherwise grossly clear. Diaphragm: No evidence of diaphragmatic defect. Liver: Hepatic steatosis. No evidence of focal hepatic lesion. Gallbladder and biliary ducts: Status post cholecystectomy. No evidence of intrahepatic or extrahepatic biliary dilatation. Pancreas: Unremarkable. Spleen: Unremarkable. Adrenal glands: Unremarkable. Kidneys and ureters: No renal parenchymal abnormality. No hydronephrosis or ureteral stone. Stomach and bowel: Colonic diverticulosis without evidence of acute diverticulitis. No bowel obstruction or perienteric inflammatory changes. Appendix: The appendix is not visualized, however there are no findings to suggest appendicitis. Intraperitoneal space: No evidence of free air or fluid collection. Vasculature: Mild aortobiiliac atherosclerosis without aneurysmal dilatation or dissection. The celiac trunk, SMA and ELMER are grossly patent. No evidence of IVC thrombus. The portal vein, SMV and splenic veins are grossly patent. Lymph nodes: No adenopathy. Urinary bladder: Grossly unremarkable. Reproductive: Prior hysterectomy. Bones/joints: No evidence of acute fracture or aggressive osseous lesion. Soft tissues: No evidence of fluid collection or hematoma in the superficial soft tissues. CT/CT abdomen pelvis w con* [id number] IMPRESSION: 1. No evidence of acute abnormality in the abdomen or pelvis.
[2024-11-04 20:53] LABS: Lactic Sepsis W/Reflex 1.2 mmol/L (0.5-2.2)
[2024-11-04 20:59] LABS: Bilirubin Urine Negative (Negative); Blood Urine Trace (Negative); Glucose Urine UA Negative (Normal); Ketones Urine Negative (Negative); Leukocyte Esterase Urine Negative (Negative); Nitrate Urine Negative (Negative); Protein Urine Negative (Negative); Specific Gravity, Urine 1.017 (1.005-1.030); Urine Appearance Clear (CLEAR); Urine Color Yellow (Yellow); pH Urine 5.5 (5-7)
[2024-11-04] MEDS: iohexol 350 mg/mL 500 mL Btl (per mL) IV (21:07)
[2024-11-04 21:14] LABS: Amphetamines Screen Urine Negative (Negative); Barbiturates Screen Urine Negative (Negative); Benzodiazepines Screen Urine Positive (Negative); Cocaine Screen Urine Negative (Negative); Opiate Screen Urine Positive (Negative); PCP Screen Urine Negative (Negative); THC Screen Urine Positive (Negative)
[2024-11-04 21:25] LABS: Add Urine Microscopic? YES; Bacteria Urine 1+ /hpf; RBC Urine 0-2 /hpf (0-2); Squamous Epithelial Cell Urine 0-5 /hpf (0-5); WBC Urine 0-5 /hpf (0-5)
[2024-11-04 21:36] VITALS: BP 112/76; PULSE 73; RESP 16; O2SAT 93
[2024-11-04 22:41] VITALS: BP 141/77; PULSE 50; RESP 14; O2SAT 95
[2024-11-04 23:14] VITALS: BP 132/77; PULSE 49; RESP 14; O2SAT 94
== END 2024-11-04 23:16 | disposition home or self-care (01) ==
PROVIDERS: Emergency Medicine; Emergency Provider Emergency Medicine; PCP Nurse Practitioner
DX: R10.9 Unspecified abdominal pain (principal); Z72.0 Tobacco use; I10 Essential (primary) hypertension; E78.5 Hyperlipidemia, unspecified
CPT/HCPCS: 36415; 74018; 74177; 80053; 80306; 81001; 83605; 83690; 85025; 86140; 93005; 96374; 96375; 99285; J1171; J2405

== ENCOUNTER → 2024-11-05 09:11 | Outpatient (BNVA) | payer OTHER, SELFPAY | PROVIDERS: PCP Nurse Practitioner; Visit Provider Nurse Practitioner | DX: K85.90 Acute pancreatitis without necrosis or infection, unspecified (principal); M25.50 Pain in unspecified joint | CPT/HCPCS: 82150; 83690 ==

== ENCOUNTER → 2024-11-09 11:11 | Outpatient (BNVA) | payer OTHER, SELFPAY | PROVIDERS: PCP Nurse Practitioner; Visit Provider Nurse Practitioner | DX: E78.2 Mixed hyperlipidemia (principal) | CPT/HCPCS: 80061 ==

== ENCOUNTER 2024-12-17 07:09 | Day surgery (SDC) | payer OTHER, SELFPAY ==
[2024-12-17 07:29] VITALS: BP 137/78; PULSE 63; RESP 18; TEMP 36.3; O2SAT 96
[2024-12-17 07:30] VITALS: BMI 31.4
[2024-12-17] MEDS: sodium chloride 0.9% 500 ML 15 ML IV (07:36)
--- NOTE | 2024-12-17 07:52 | P.ANESASSM_ITS ---
Pre-Anesthetic Assessment Height/Weight: Height 1.65 m Weight 85.729 kg Temp Pulse Resp BP Pulse Ox O2 Del Method 97.3 F L 63 18 137/78 96 Room Air 12/17/24 07:29 12/17/24 07:29 12/17/24 07:29 12/17/24 07:29 12/17/24 07:29 12/17/24 07:29 Operation Date: 12/17/24 08:20 Proposed Procedures p EGD 24266, 22877, G0105, Z12.11(Not Applicable) - Roman Siddiqui MD s Colonoscopy(Not Applicable) - Roman Siddiqui MD Familial anesthetic complications: None Was Beta Monique taken within 24 hours: N/A Was Clonidine taken within 24 hours: N/A Last intake: Intake Last Liquid Date 12/16/24 Last Liquid Time 21:00 Last Solid Date 12/15/24 Social Tobacco and No alcohol Exam alert, oriented x 3, clear to auscultation bilaterally and regular rate & rhythm Airway Mallampati: Class I Dentition: false Pulmonary Sleep Apnea CV/HEM Arrythmia and Hypertension GI Gastroesophageal Reflux Disease and Hiatal Hernia Metabolic Thyroid Disease Anesthetic Plan ASA status: 3 Anesthesia: MAC Risk of > 500 ml blood loss (7ml/kg in children): No Medications/Allergies Home Medications Medication Instructions Recorded Confirmed Last Taken Type albuterol sulfate 90 mcg/actuation 2 puff inhalation QID PRN 07/05/23 12/17/24 Unknown History aerosol inhaler Shortness Of Breath esomeprazole magnesium 40 mg 40 mg PO QAM 07/05/23 12/15/24 12/16/24 History capsule,delayed release (Nexium) furosemide 20 mg tablet (Lasix) 20 mg PO DAILY PRN Edema 07/05/23 12/17/24 Unknown History loratadine 10 mg tablet (Claritin) 10 mg PO QAM 07/05/23 12/15/24 12/16/24 History estradiol 2 mg tablet (Estrace) 2 mg PO QAM #90 tabs 10/27/24 12/15/24 12/16/24 Rx fluoxetine 40 mg capsule (Prozac) 40 mg PO QAM #90 caps 10/27/24 12/15/24 12/16/24 Rx polyethylene glycol 3350 17 17 g PO DAILY #510 grams 11/04/24 12/15/24 12/16/24 Rx gram/dose oral powder (Miralax) valsartan 40 mg tablet (Diovan) 40 mg PO DAILY #30 tabs 11/09/24 12/17/24 Unknown Rx promethazine 25 mg tablet 25 mg PO Q6H PRN nausea and 12/03/24 12/17/24 12/16/24 Rx vomiting #30 tabs Allergies Allergy/AdvReac Type Severity Reaction Status Date / Time rosuvastatin [From Crestor] Allergy Severe ADR-Itching Verified 12/17/24 07:26 codeine Allergy ADR-Itching Verified 12/17/24 07:26 hydrocodone Allergy ADR-Itching Verified 12/17/24 07:26 morphine Allergy ALGY-Rash Verified 12/17/24 07:26 sumatriptan [From Imitrex] Allergy ADR-Itching Verified 12/17/24 07:26 tramadol Allergy ADR-Itching Verified 12/17/24 07:26 Current Medications Generic Name Dose Route Start Last Admin Trade Name Freq PRN Reason Stop Dose Admin Sodium Chloride 500 mls @ 15 mls/hr 12/17/24 07:13 12/17/24 07:36 Sodium Chloride 0.9% IV 12/18/24 07:12 15 mls/hr .Q24H PRN Administration COLONOSCOPY FLUIDS PFSH Anesthesia Medical History Hyperlipidemia, mixed Essential hypertension BEATRIZ on CPAP Postmenopausal HRT (hormone replacement therapy) Generalized anxiety disorder Surgical History History of colonoscopy with polypectomy 2 scope with 8 polypectomy. Testing every 3 years History of total hysterectomy Vaginal with BSO History of appendectomy History of cholecystectomy Family History Father Cancer colon Hypertension Stroke Mother CAD (coronary artery disease) Hypertension Grandmother Diabetes Denies family history of Dementia Social History Smoking and tobacco/nicotine status: former use of tobacco/nicotine Second hand smoke exposure: No Alcohol intake: current Alcohol intake frequency: holidays/special occasions o nly Substance/Drug Use: unknown Adopted: No Caregiver/support person: No Lives independently: Yes Household members: significant other Housing: House Marital status: Single Number of children: 2 service: No Current occupational status: employed 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
--- NOTE | 2024-12-17 08:16 | P.HPUD_ITS ---
Surgery/Procedure H&P Update DATE OF PROCEDURE: December 17, 2024 DATE H&P PERFORMED: 12/08/24 H&P UPDATE INFORMATION: I have reviewed H&P completed within last 30 days, I have examined patient prior to procedure, No changes to prior documentation and H&P is in [facility] [place] on date indicated PLANNED PROCEDURE: Operation Date: 12/17/24 08:20 Proposed Procedures p EGD [id number], [id number], G0105, Z12.11(Not Applicable) - Roman Siddiqui MD s Colonoscopy(Not Applicable) - Roman Siddiqui MD
[2024-12-17 09:01] VITALS: BP 123/83; PULSE 64; RESP 20; TEMP 36.1; O2SAT 97
[2024-12-17 09:10] VITALS: BP 131/82; PULSE 63; RESP 20; O2SAT 99
[2024-12-17 09:20] VITALS: BP 137/69; PULSE 50; RESP 20; O2SAT 98
--- NOTE | 2024-12-17 14:03 | ANE.PACU2 ---
Inpatient post-anesthesia follow up: Airway intact: Yes Vital signs: Temperature 97.0 F Pulse Rate 50 Respiratory Rate 20 Blood Pressure 137/69 Pulse Oximetry 98 Oxygen Delivery Me thod Room Air Oxygen Flow Rate 1 Fraction of Inspir ed Oxygen Hydration adequate: Yes Nausea and vomiting: No Pain level: 1 Mental status: Baseline
== END 2024-12-17 09:39 | disposition home or self-care (01) ==
PROVIDERS: PCP Nurse Practitioner; Visit Provider Surgery
PROC: 0DJ08ZZ Inspection of Upper Intestinal Tract, Via Natural or Artificial Opening Endoscopic (ICD-10-PCS; principal; 2024-12-17 08:20)
PROC: 0DJD8ZZ Inspection of Lower Intestinal Tract, Via Natural or Artificial Opening Endoscopic (ICD-10-PCS; CPT 45378; 2024-12-17 08:20)
DX: Z12.11 Encounter for screening for malignant neoplasm of colon (principal); D12.0 Benign neoplasm of cecum; I10 Essential (primary) hypertension; K21.9 Gastro-esophageal reflux disease without esophagitis; K44.9 Diaphragmatic hernia without obstruction or gangrene; R11.2 Nausea with vomiting, unspecified; Z79.899 Other long term (current) drug therapy; Z88.8 Allergy status to other drugs, medicaments and biological substances; Z88.5 Allergy status to narcotic agent; G47.33 Obstructive sleep apnea (adult) (pediatric); E78.2 Mixed hyperlipidemia; Z90.49 Acquired absence of other specified parts of digestive tract; Z80.0 Family history of malignant neoplasm of digestive organs; Z87.891 Personal history of nicotine dependence; Z86.0100 Personal history of colon polyps, unspecified
CPT/HCPCS: 43239; 45385; 88305; J2704; J7040